=== PATIENT | male | born 1940 | race American Indian/Alaskan Native ===

== ENCOUNTER 2017-08-25 07:54 | Observation (INO) | payer MEDICARE ==
[2017-08-25 08:11] VITALS: BMI 29.7
--- NOTE | 2017-08-25 08:37 | ED PDOC ---
Arrival/HPI - General Chief Complaint: Chest Pain Time Seen by Provider: 08/25/17 08:08 Historian: Patient - History of Present Illness Narrative History of Present Illness (Text): 08/25/17 08:14 77 year old male, with past medical history of [place], diabetes, and GERD, presents to the Emergency department complaining of substernal chest pain since yesterday. Patient states he was cooking last night when the pain began and is currently rated at 9/10 in severity. As per patient, pain worsens with movement and breathing but is unable to describe the pain. Patient denies any history of trauma or radiation of symptoms. Patient denies any fever, chills, nausea, vomiting, diarrhea, abdominal pain, shortness of breath, diaphoresis, or any other complaints. Patient presents to the Emergency department for medical evaluation. PMD: Dr. Jackson ([facility] – [place]) Time/Duration: Other (Last night) Symptom Onset: Gradual Symptom Course: Unchanged Quality: Aching Severity Level: 9 Activities at Onset: Other (Cooking) Context: Home Past Medical History - Provider Review Nursing Documentation Reviewed: Yes - Cardiac Hx Cardiac Disorders: Yes Hx [place]: Yes Hx Pacemaker: No - Pulmonary Hx Respiratory Disorders: No - Neurological Hx Neurological Disorder: No - HEENT Hx HEENT Disorder: No - Renal Hx Renal Disorder: No - Endocrine/Metabolic Hx Endocrine Disorders: Yes Hx Diabetes Mellitus Type 2: Yes - Hematological/Oncological Hx Blood Transfusions: No Hx Blood Transfusion Reaction: No - Integumentary Hx Dermatological Disorder: No - Musculoskeletal/Rheumatological Hx Musculoskeletal Disorders: No - Gastrointestinal Hx Gastrointestinal Disorders: Yes Hx Gastroesophageal Reflux: Yes - Genitourinary/Gynecological Hx Genitourinary Disorders: Yes Hx Prostate Problems: Yes - Psychiatric Hx Emotional Abuse: No Hx Physical Abuse: No Hx Substance Use: No - Anesthesia Hx Anesthesia Reactions: No Hx Malignant Hyperthermia: No - Suicidal Assessment Feels Threatened In Home Enviroment: No Family/Social History - Physician Review Nursing Documentation Reviewed: Yes Family/Social History: No Known Family HX Smoking Status: Never Smoked Hx Alcohol Use: No Hx Substance Use: No Allergies/Home Meds Allergies/Adverse Reactions: Allergies No Known Allergies Allergy (Verified 08/25/17 08:11) Home Medications: Home Meds Medication Instructions Recorded Confirmed Amlodipine Besylate/Benazepril 1 cap PO DAILY 03/24/16 03/24/16 [Amlodipine-Benazepril 5-20 mg] Finasteride [Proscar] 1 tab PO DAILY 03/24/16 03/24/16 Insulin NPH Hum/Reg Insulin Hm 35 units SC BID 03/24/16 03/24/16 [Humulin 70-30 Vial] Losartan Potassium [Cozaar] 1 tab PO DAILY 03/24/16 03/24/16 Omeprazole 40 mg PO DAILY 03/24/16 03/24/16 Propranolol [Inderal] 40 mg PO BID 03/24/16 03/24/16 Simvastatin [Zocor] 1 tab PO DAILY 03/24/16 03/24/16 Review of Systems - Physician Review All systems were reviewed & negative as marked: Yes - Review of Systems Constitutional: Normal. absent: Fevers Eyes: Normal ENT: Normal Respiratory: Normal. absent: SOB Cardiovascular: Chest Pain Gastrointestinal: Normal. absent: Abdominal Pain, Diarrhea, Nausea, Vomiting Genitourinary Male: Normal Musculoskeletal: Normal Skin: Normal Neurological: Normal Endocrine: Normal. absent: Diaphoresis Hemo/Lymphatic: Normal Psychiatric: Normal Physical Exam Vital Signs Reviewed: Yes Vital Signs Temp Pulse Resp BP Pulse Ox 08/25/17 09:38 55 L 16 153/75 H 97 08/25/17 09:34 55 L 153/75 H 08/25/17 08:03 98.8 F 52 L 18 160/73 H 98 Temperature: Afebrile Blood Pressure: Hypertensive Pulse: Bradycardic Respiratory Rate: Normal Appearance: Positive for: Well-Appearing, Non-Toxic, Comfortable Pain Distress: None Mental Status: Positive for: Alert and Oriented X 3 - Systems Exam Head: Present: Atraumatic, Normocephalic Pupils: Present: PERRL Extroacular Muscles: Present: EOMI Conjunctiva: Present: Normal Respiratory/Chest: Present: Clear to Auscultation, Good Air Exchange. No: Respiratory Distress, Accessory Muscle Use Cardiovascular: Present: Regular Rate and Rhythm, Normal S1, S2. No: Murmurs Abdomen: No: Tenderness, Distention, Peritoneal Signs Back: Present: Normal Inspection Upper Extremity: Present: Normal Inspection. No: Cyanosis, Edema Lower Extremity: Present: Normal Inspection. No: Edema Neurological: Present: GCS=15, CN II-XII Intact, Speech Normal Skin: Present: Warm, Dry, Normal Color. No: Rashes Psychiatric: Present: Alert, Oriented x 3, Normal Insight, Normal Concentration Medical Decision Making ED Course and Treatment: 08/25/17 08:14 Impression: 77 year old male presents to the Emergency department for substernal chest pain. Plan: -- Labs -- EKG -- Chest X-ray -- Aspirin -- Lopressor -- Nitroglycerin -- Urinalysis -- Urine culture -- Reassess and disposition Prior Visits: Notes and results from previous visits were reviewed. Progress Notes: 08/25/17 07:56 EKG: Ordered, reviewed, and independently interpreted the EKG. Rate : 54 BPM Rhythm : Sinus bradycardia Interpretation : Premature atrial complexes. Nonspecific T wave abnormality. 08/25/17 08:30 Chest X-ray reviewed by radiologist, shows: FINDINGS: LUNGS: No active pulmonary disease. PLEURA: No significant pleural effusion identified, no pneumothorax apparent. CARDIOVASCULAR: Normal. OSSEOUS STRUCTURES: No significant abnormalities. VISUALIZED UPPER ABDOMEN: Normal. OTHER FINDINGS: None. IMPRESSION: No active disease. - Lab Interpretations Lab Results: 08/25/17 09:15 08/25/17 09:15 Lab Results 08/25/17 09:15: Sodium 141, Potassium 4.4, Chloride 105, Carbon Dioxide 26, Anion Gap 15, BUN 16, Creatinine 0.8, Est GFR ( Amer) > 60, Est GFR (Non- Af Amer) > 60, Random Glucose 117 H, Calcium 9.8, Total Bilirubin 0.4, AST 32, ALT 35, Alkaline Phosphatase 89, Lactate Dehydrogenase 450, Total Creatine Kinase 73, Troponin I < 0.01, NT-Pro-B Natriuret Pep 84.4, Total Protein 7.7, Albumin 4.0, Globulin 3.7, Albumin/Globulin Ratio 1.1, Lipase 65 08/25/17 09:15: PT 12.5, INR 1.09 H 08/25/17 09:15: WBC 9.1, RBC 5.16, Hgb 11.7 L, Hct 35.8 L, MCV 69.4 L, MCH 22.7 L, MCHC 32.7, RDW 14.3, Plt Count 309, MPV 10.2, Gran % 69.1 H, Lymph % (Auto) 24.3, [place] % (Auto) 5.5, Eos % (Auto) 0.9 L, Baso % (Auto) 0.2, Gran # 6.27, Lymph # (Auto) 2.2, [place] # (Auto) 0.5, Eos # (Auto) 0.1, Baso # (Auto) 0.02 - RAD Interpretation Radiology Orders: 08/25/17 08:14 CHEST PORTABLE [RAD] Stat Arts Education Teacher: Radiologist - EKG Interpretation Interpreted by ED Physician: Yes Type: 12 lead EKG - Medication Orders Current Medication Orders: Discontinued Medications Aspirin (Aspirin Chewable) 324 mg PO STAT STA Stop: 08/25/17 08:20 Last Admin: 08/25/17 09:34 Dose: 324 mg Metoprolol Tartrate (Lopressor) 25 mg PO STAT STA Stop: 08/25/17 08:20 Last Admin: 08/25/17 09:34 Dose: 25 mg MAR Pulse and Blood Pressure Document 08/25/17 09:34 [facility] (Rec: 08/25/17 09:34 [facility] [id number]) Pulse Pulse Rate (60-90) 55 Blood Pressure Blood Pressure (100/60-150/90) 153/75 Nitroglycerin (Nitrostat Sl Tab) 0.4 mg SL STAT STA Stop: 08/25/17 08:20 Last Admin: 08/25/17 09:34 Dose: 0.4 mg - Scribe Statement The provider has reviewed the documentation as recorded by the Scribj[employer]. All medical record entries made by the Scribe were at my direction and personally dictated by me. I have reviewed the chart and agree that the record accurately reflects my personal performance of the history, physical exam, medical decision making, and the department course for this patient. I have also personally directed, reviewed, and agree with the discharge instructions and disposition. Disposition/Present on Arrival - Present on Arrival Any Indicators Present on Arrival: No History of DVT/PE: No History of Uncontrolled Diabetes: No Urinary Catheter: No History of Decub. Ulcer: No History Surgical Site Infection Following: None - Disposition Have Diagnosis and Disposition been Completed?: Yes Diagnosis: Chest pain Disposition: HOSPITALIZED Disposition Time: 10:53 Patient Plan: Admission, Telemetry Condition: GOOD Discharge Instructions (ExitCare): Chest Pain (ED) Forms: WhenSoon (Slovak)
[2017-08-25 09:55] LABS: BASO # 0.02 K/mm3 (0.0-2.0); BASO % 0.2 % (0.0-3.0); EOS # 0.1 (0.0-0.7); EOS % 0.9 % (1.5-5.0); GRAN # 6.27 (1.4-6.5); GRAN % 69.1 % (50.0-68.0); HEMOGLOBIN 11.7 g/dL (14.0-18.0); LYMPH # 2.2 (1.2-3.4); LYMPH % 24.3 % (22.0-35.0); MEAN CELL VOLUME 69.4 fl (80.0-105.0); MEAN CORPUSCULAR HEMOGLOBIN 22.7 pg (25.0-35.0); MEAN CORPUSCULAR HGB CONC 32.7 g/dl (31.0-37.0); MEAN PLATELET VOLUME 10.2 fl (7.0-11.0); MONO # 0.5 (0.1-0.6); MONO % 5.5 % (1.0-6.0); RBC 5.16 10^6/uL (3.5-6.1); RED CELL DISTRIBUTION WIDTH 14.3 % (11.5-14.5); WHITE BLOOD COUNT 9.1 10^3/ul (4.5-11.0)
[2017-08-25 10:05] LABS: ALB/GLOB RATIO 1.1 (1.1-1.8); ALT/SGPT 35 U/L (7-56); AST/SGOT 32 U/L (17-59); BLOOD UREA NITROGEN 16 mg/dL (7-21); CALCIUM 9.8 mg/dL (8.4-10.5); GFR AFRICAN-AMERICAN > 60; GFR NON-AFRICAN AMERICAN > 60; LIPASE 65 U/L (23-300)
[2017-08-25 10:08] LABS: INR 1.09 (0.93-1.08); PROTHROMBIN TIME 12.5 SECONDS (9.4-12.5)
[2017-08-25 10:16] LABS: B-TYPE NATRIURETIC PEPTIDE 84.4 pg/mL (0-450); TROPONIN I < 0.01 ng/mL
--- NOTE | 2017-08-25 12:07 | HP ---
HISTORY OF PRESENT ILLNESS: I was called to the ER to see this young man. He is a 77-year-old -[place] man who comes in with a history of having cocaine and then began having 9/10 severity chest pain, worse with motion. Denies trauma and came to the emergency room with left-sided chest pain. PAST MEDICAL HISTORY: He has a past medical history of [place] in the past, diabetes, GERD, he has prostate problems. FAMILY HISTORY: Diabetes in the family. SOCIAL HISTORY: Never smoked. No alcohol. No drugs. ALLERGIES: NO KNOWN DRUG ALLERGIES. MEDICATIONS: He is on amlodipine, benazepril, Proscar, insulin, Cozaar, omeprazole, Inderal and Zocor. REVIEW OF SYSTEMS: No acute vision changes or hearing changes. No sore throat. No shortness of breath or cough. He is just having chest pain, it is sharp, it is pressure. No palpitations. No abdominal pain, nausea, vomiting, constipation, diarrhea. No problems urinating. No leg pains. He is not anxious. Not sweaty. No numbness or tingling. No expression of any skin issues. PHYSICAL EXAMINATION: VITAL SIGNS: He has a 98.8 temp, 52 pulse, 18 respiratory rate, 160/73 blood pressure, 98% O2 sat on room air. GENERAL: He is well appearing, comfortable at this time, resting on the gurney in the emergency room. He is alert and oriented x3. HEENT: Head is atraumatic, normocephalic. Extraocular muscles are intact. Pupils equal, reactive to light and accommodation. Throat is moist. NECK: Supple. HEART: Regular rate. Normal S1 and S2. LUNGS: Decreased breath sounds bilaterally. Fair inspiration, but no wheezes, rhonchi or rales. ABDOMEN: Soft, nontender. Positive bowel sounds. No guarding, no rebound, no CVA tenderness. EXTREMITIES: Have no edema. He moves all 4 extremities. NEUROLOGIC: GCS is 15. Cranial nerves II through XII grossly intact. Normal speech. SKIN: Warm and dry. No apparent rashes or ulcers that I could tell. LYMPHATICS: Thyroid midline. No palpable appreciable lymphadenopathy. PSYCHIATRIC: Alert and oriented x3. LABORATORY DATA: He had multiple tests. He has a 9.1 white count, 11.7 hemoglobin, 35.8 hematocrit with 309 platelets. He has an INR of 1.09. 141 sodium, potassium 4.4, BUN 16, creatinine 0.8, GFR is greater than 60, sugar is 117, calcium is 9.8, total bili is 0.4, AST is 32, ALT is 35, alk phos 89, lactate dehydrogenase is 450. Troponin I first one is less than 0.01. BNP is 84.4, total protein 7.7, albumin is 4, lipase is 65. Chest x-ray is no acute distress. IMPRESSION: He is here for chest pain. He will be on observation status. Two more troponins every 8 hours. I will put him back on his regular medications. He will have a consult with Cardiology. He will go to telemetry floor on observation. He is here for chest pain. Delfino Andrade DO
[2017-08-25] MEDS ORDERED: PROPRANOLOL 40 MG PO SCH (18:00)
[2017-08-25] MEDS: Insulin Human NPH/Reg 70/30 Vial(3 ml) SC SCH (19:15)
--- NOTE | 2017-08-25 23:42 | CARD ---
APPROVED REPORT EKG Measurement Heart [id number] <Conclusion> Sinus bradycardia with premature atrial complexes in a pattern of bigeminy Minimal voltage criteria for LVH, may be normal variant Nonspecific T wave abnormality Abnormal ECG
[2017-08-26 06:28] LABS: HEMOGLOBIN 10.5 g/dL (14.0-18.0); MEAN CELL VOLUME 69.2 fl (80.0-105.0); MEAN CORPUSCULAR HEMOGLOBIN 22.3 pg (25.0-35.0); MEAN CORPUSCULAR HGB CONC 32.2 g/dl (31.0-37.0); MEAN PLATELET VOLUME 10.2 fl (7.0-11.0); RBC 4.71 10^6/uL (3.5-6.1); RED CELL DISTRIBUTION WIDTH 14.4 % (11.5-14.5); WHITE BLOOD COUNT 7.3 10^3/ul (4.5-11.0)
[2017-08-26 06:40] LABS: ALBUMIN 3.3 g/dL (3.0-4.8); ALT/SGPT 33 U/L (7-56); AST/SGOT 30 U/L (17-59); BLOOD UREA NITROGEN 19 mg/dL (7-21); CALCIUM 8.7 mg/dL (8.4-10.5); GFR AFRICAN-AMERICAN > 60; GFR NON-AFRICAN AMERICAN > 60
[2017-08-26 06:53] VITALS: O2SAT 99
[2017-08-26] MEDS ORDERED: Pantoprazole 40 mg EC Tab PO SCH (07:30)
[2017-08-26] MEDS: Insulin Human NPH/Reg 70/30 Vial(3 ml) SC SCH (09:43)
[2017-08-26] MEDS ORDERED: BENAZEPRIL PO SCH ×2 (10:00)
[2017-08-26] MEDS ORDERED: Non Formulary Medication (Omeprazole [Omeprazole] 40 MG) PO SCH (10:00)
[2017-08-26] MEDS ORDERED: [UNRECOGNIZED DRUG - OTHER] PO SCH ×2 (10:00)
[2017-08-26] MEDS ORDERED: AMLODIPINE BESYLATE PO SCH ×2 (10:00)
[2017-08-26] MEDS ORDERED: Non Formulary Medication (Simvastatin [Zocor] 1 TAB) PO SCH (10:00)
--- NOTE | 2017-08-26 11:14 | CON ---
DATE: 08/26/2017 CARDIOLOGY CONSULTATION HISTORY: The patient is a 77-year-old male who presents with chest pain which is atypical in nature. PAST MEDICAL HISTORY: Includes a remote myocardial infarction in the past according to the patient. He suffers from hypertension, hypercholesterolemia as well as diabetes mellitus. SOCIAL HISTORY He denies smoking. REVIEW OF SYSTEMS: The patient is currently chest pain free. He is ambulating without symptoms. The 14 point review of systems is reviewed in detail. No additional symptoms are noted from above. PHYSICAL EXAMINATION: VITAL SIGNS: Blood pressure 139/75, heart rate in the 50s. Normal sinus rhythm. NECK: Negative JVD. LUNGS: Without rales. HEART: Reveal S1, S2. EXTREMITIES: Without edema. DATA: EKG shows sinus bradycardia with no acute changes. Troponins are negative x2. Glucose is 171, hemoglobin is 10.5. IMPRESSION: 1. Atypical chest pain. 2. No evidence for acute coronary syndrome. 3. History of myocardial infarction, nonspecific. 4. Diabetes mellitus. 5. Hypertension. 6. Hypercholesterolemia. 7. Anemia. Given these findings, there is no evidence for acute coronary syndrome. We will need to decrease his beta-blockers given his resting bradycardia. From a cardiac perspective, the patient can be discharged. We will arrange for an outpatient stress test next week. Danial Melo MD
[2017-08-26 11:26] VITALS: BP 133/82; PULSE 61; RESP 18; TEMP 98
--- NOTE | 2017-08-27 06:35 | DS ---
HISTORY OF PRESENT ILLNESS: I saw him resting comfortably in bed this morning. He slept well. He is in good spirits. He is on his amlodipine, benazepril, Cozaar, Inderal, Lipitor, Proscar and Protonix. He slept well. He is eating well. PHYSICAL EXAMINATION: VITAL SIGNS: He has 98.1 temperature, 53 pulse, 152/68 blood pressure, 19 respiratory rate, 99% O2 sat on room air. CHEST: He is having no chest pain or shortness of breath. HEENT: Head is atraumatic, normocephalic. HEART: Regular rate. LUNGS: Clear to auscultation. ABDOMEN: Soft. EXTREMITIES: No edema. LABORATORY DATA: He has a 139 sodium, potassium 3.9, BUN is 19, creatinine is 0.9, GFR is greater than 60, sugar is 171, calcium is 8.7, total bili is 0.2, AST is 30, ALT is 32, alk phos is 87. All 3 troponins are less than 0.01. He has a 6.8 albumin. His INR is 1.09. He has a 7.3 white count, 10.5 hemoglobin, 32.6 hematocrit with 318 platelets. ASSESSMENT AND PLAN: I am waiting for Dr. 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 I am hoping to discharge him later this afternoon. He will follow up with his primary care doctor in the next week. He will continue with his medications and right now, it looks like chest pain - atypical. Delfino Andrade DO
== END 2017-08-26 13:56 | disposition home or self-care (01) ==
LOC: ED 07:54 → ERH 10:42 → 2RNO 12:52
PROVIDERS: ADMIT Family Medicine; ATTEND Family Medicine
DX: R07.89 Other chest pain (principal); I10 Essential (primary) hypertension; E11.9 Type 2 diabetes mellitus without complications; K21.9 Gastro-esophageal reflux disease without esophagitis; D64.9 Anemia, unspecified; E78.00 Pure hypercholesterolemia, unspecified; I25.2 Old myocardial infarction; Z79.4 Long term (current) use of insulin; Z83.3 Family history of diabetes mellitus
CPT/HCPCS: 36415; 71045; 80053; 82550; 82948; 83615; 83690; 83880; 84484; 85025; 85027; 85610; 93005; 99283; G0378

== ENCOUNTER 2017-10-31 11:20 | Inpatient (IN) | payer MEDICARE, OTHER ==
--- NOTE | 2017-10-31 12:18 | ED PDOC ---
Arrival/HPI - General Chief Complaint: Male Genitourinary Time Seen by Provider: 10/31/17 11:26 Historian: Patient - History of Present Illness Narrative History of Present Illness (Text): 10/31/17 11:51 A 77 year old male, whose past medical history includes benign prostatic hyperplasia, DM, and Hypertension, presents to the emergency department complaining of suprapubic abdominal pain since last . Patient reports last Tuesday his urine started to smell to which he visited his PMD, Dr. Jackson. Dr. Jackson prescribed ciprofloxacin and patient reports he has taken one pill everyday to no relief and pain has increased. Patient notes he has not had a bowel movement in the past 6 days. Patient denies any fever, chills, chest pain , shortness of breath, nausea, vomiting, diarrhea, hematuria, back pain, neck pain, headache, dizziness, or any other complaints. PMD: Dr. Jackson Time/Duration: > week (last week) Symptom Onset: Gradual Symptom Course: Unchanged Activities at Onset: Light Context: Home Past Medical History - Provider Review Nursing Documentation Reviewed: Yes - Cardiac Hx Cardiac Disorders: Yes - Pulmonary Hx Respiratory Disorders: No - Neurological Hx Neurological Disorder: No - HEENT Hx HEENT Disorder: No - Renal Hx Renal Disorder: No - Endocrine/Metabolic Hx Endocrine Disorders: Yes Hx Diabetes Mellitus Type 2: Yes - Hematological/Oncological Hx Blood Disorders: No - Integumentary Hx Dermatological Disorder: No - Musculoskeletal/Rheumatological Hx Musculoskeletal Disorders: No - Gastrointestinal Hx Gastrointestinal Disorders: Yes Hx Gastroesophageal Reflux: Yes - Genitourinary/Gynecological Hx Genitourinary Disorders: Yes Hx Prostate Problems: Yes - Psychiatric Hx Psychophysiologic Disorder: No Hx Substance Use: No - Anesthesia Hx Anesthesia Reactions: No Hx Malignant Hyperthermia: No - Suicidal Assessment Feels Threatened In Home Enviroment: No Family/Social History - Physician Review Nursing Documentation Reviewed: Yes Family/Social History: Unknown Family HX Smoking Status: Never Smoked Hx Alcohol Use: No Hx Substance Use: No Allergies/Home Meds Allergies/Adverse Reactions: Allergies No Known Allergies Allergy (Verified 10/31/17 15:42) Home Medications: Home Meds Medication Instructions Recorded Confirmed Amlodipine Besylate/Benazepril 1 cap PO DAILY 03/24/16 10/31/17 [Amlodipine-Benazepril 5-20 mg] Finasteride [Proscar] 1 tab PO DAILY 03/24/16 10/31/17 Insulin NPH Hum/Reg Insulin Hm 35 units SC BID 03/24/16 10/31/17 [Humulin 70-30 Vial] Losartan Potassium [Cozaar] 1 tab PO DAILY 03/24/16 10/31/17 Propranolol [Inderal] 20 mg PO BID 03/24/16 10/31/17 Simvastatin [Zocor] 1 tab PO DAILY 03/24/16 10/31/17 Ciprofloxacin [Cipro] 500 mg PO BID 10/31/17 10/31/17 Olmesartan Medoxomil [Benicar] 40 mg PO DAILY 10/31/17 10/31/17 Ranitidine HCl [Zantac] 150 mg PO DAILY 10/31/17 10/31/17 Rosuvastatin Calcium [Crestor] 10 mg PO DAILY 10/31/17 10/31/17 Review of Systems - Physician Review All systems were reviewed & negative as marked: Yes - Review of Systems Constitutional: absent: Fevers, Night Sweats Respiratory: absent: SOB Cardiovascular: absent: Chest Pain Gastrointestinal: Abdominal Pain. absent: Stool Changes, Constipation, Diarrhea , Nausea, Vomiting, Appetite Changes, Hematemesis, Anorexia, Food Intolerance, Other (hematuria) Musculoskeletal: absent: Back Pain, Neck Pain Neurological: absent: Headache, Dizziness Physical Exam Vital Signs Reviewed: Yes Vital Signs Temp Pulse Resp BP Pulse Ox 10/31/17 11:53 97.9 F 63 18 161/88 H 100 Temperature: Afebrile Blood Pressure: Hypertensive Pulse: Regular Respiratory Rate: Normal Appearance: Positive for: Well-Appearing, Non-Toxic, Comfortable Pain Distress: None Mental Status: Positive for: Alert and Oriented X 3 - Systems Exam Head: Present: Atraumatic, Normocephalic Pupils: Present: PERRL Extroacular Muscles: Present: EOMI Conjunctiva: Present: Normal Mouth: Present: Moist Mucous Membranes Neck: Present: Normal Range of Motion Respiratory/Chest: Present: Clear to Auscultation, Good Air Exchange. No: Respiratory Distress, Accessory Muscle Use Cardiovascular: Present: Regular Rate and Rhythm, Normal S1, S2. No: Murmurs Abdomen: Present: Tenderness (suprapubic tenderness to palpation). No: Distention, Normal Bowel Sounds, Peritoneal Signs, Rebound, Guarding, McBurney' s Point Tender, Rovsing's Sign Present, Hernias, Feeding Tubes, Ostomy Tubes, Mass/Organomegaly, Scars Back: Present: Normal Inspection Upper Extremity: Present: Normal Inspection. No: Cyanosis, Edema Lower Extremity: Present: Normal Inspection. No: Edema Neurological: Present: GCS=15, CN II-XII Intact, Speech Normal Skin: Present: Warm, Dry, Normal Color. No: Rashes Psychiatric: Present: Alert, Oriented x 3, Normal Insight, Normal Concentration Medical Decision Making ED Course and Treatment: 10/31/17 12:00 Impression: A 77 year old male presents to the emergency department complaining of suprapubic abdominal pain. Plan: -- CT of Abdomen & Pelvis with contrast -- Labs -- CBC -- Pepcid -- IV Fluids -- Urine culture -- Urinalysis -- Reassess and disposition Prior Visits: Notes and results from previous visits were reviewed. Progress Notes: 10/31/17 12:00 In initial assessment, patient reported he has been taken prescribed medicine from PMD every day but upon observation all 14 pills are present and untouched. 10/31/17 14:29 Dictator: Dylan Branch MD Procedure: CT Abdomen and Pelvis with contrast Impression: There is severe mural thickening and irregularity of the bladder wall. Several diverticula are seen arising from the anterior superior surface of the bladder. Findings are suspicious for cystitis. The prostate is severely enlarged measuring 81 mm in height by 68 mm wide by 53 mm AP. 10/31/17 14:[address] Rg, who is aware the patient is in the emergency room to admit patient to med-surg for further observation. - Lab Interpretations Lab Results: 10/31/17 12:10 10/31/17 12:10 Lab Results 10/31/17 12:30: Urine Opiates Screen Negative, Urine Methadone Screen Negative, Ur Barbiturates Screen Negative, Ur Phencyclidine Scrn Negative, Ur Amphetamines Screen Negative, U Benzodiazepines Scrn Negative, U Oth Cocaine Metabols Negative, U Cannabinoids Screen Negative 10/31/17 12:10: Urine Color Light yellow, Urine Appearance Cloudy, Urine pH 5.5 , Ur Specific [place] >= 1.030, Urine Protein >=300 H, Urine Glucose (UA) Negative, Urine Ketones Negative, Urine Blood Large H, Urine Nitrate Negative, Urine Bilirubin Negative, Urine Urobilinogen 0.2, Ur Leukocyte Esterase Large H , Urine RBC Tntc, Urine WBC Tntc, Ur Epithelial Cells 0 - 2, Amorphous Sediment Small, Urine Bacteria Many, Urine Other Uyeast 10/31/17 12:10: Sodium 140, Potassium 4.7, Chloride 103, Carbon Dioxide 27, Anion Gap 15, BUN 18, Creatinine 1.0, Est GFR ( Amer) > 60, Est GFR (Non- Af Amer) > 60, Random Glucose 302 H* D, Calcium 9.9, Magnesium 1.9, Total Bilirubin 0.4, AST 23, ALT 22, Alkaline Phosphatase 120, Total Protein 7.5, Albumin 3.9, Globulin 3.6, Albumin/Globulin Ratio 1.1, Lipase 85 10/31/17 12:10: WBC 7.4, RBC 4.80, Hgb 11.0 L, Hct 33.1 L, MCV 69.0 L, MCH 22.9 L, MCHC 33.2, RDW 14.6 H, Plt Count 350, MPV 9.5, Gran % 55.9, Lymph % (Auto) 31.4, Wayne % (Auto) 10.0 H, Eos % (Auto) 2.4, Baso % (Auto) 0.3, Gran # 4.14, Lymph # (Auto) 2.3, Wayne # (Auto) 0.7 H, Eos # (Auto) 0.2, Baso # (Auto) 0.02 - RAD Interpretation Radiology Orders: 10/31/17 12:05 ABD & PELVIS IV CONTRAST ONLY [CT] Stat - Medication Orders Current Medication Orders: Acetaminophen (Tylenol 325mg Tab) 650 mg PO Q6 PRN PRN Reason: TEMP>=99.5F Acetaminophen (Tylenol 650 Mg Supp) 650 mg RC Q6H PRN PRN Reason: TEMP>=99.5F Aspirin (Ecotrin) 81 mg PO DAILY [facility] Last Admin: 10/31/17 16:22 Dose: 81 mg Atorvastatin Calcium (Lipitor) 40 mg PO DIN [facility] Last Admin: 10/31/17 18:18 Dose: 40 mg Dextrose (Dextrose 50% Inj) 0 ml IV STAT PRN; Protocol PRN Reason: Hypoglycemia Protocol Docusate Sodium (Colace) 100 mg PO TID [facility] Last Admin: 10/31/17 18:18 Dose: 100 mg Famotidine (Pepcid) 20 mg PO HS DAISY Last Admin: 10/31/17 22:37 Dose: 20 mg Finasteride (Proscar) 5 mg PO DAILY DAISY Heparin Sodium (Porcine) (Heparin) 5,000 units SC Q8 DAISY PRN Reason: Protocol Last Admin: 10/31/17 22:17 Dose: 5,000 units Subcutaneous Administrations Document 10/31/17 22:17 MJ (Rec: 10/31/17 22:17 [place] [id number]) Injection Site MAR Injection Site Left Abdomen Charges for Administration # of Subcutaneous Administrations 1 Sodium Chloride (Sodium Chloride 0.9%) 1,000 mls @ 100 mls/hr IV .Q10H DAISY Last Admin: 10/31/17 22:32 Dose: 100 mls/hr eMAR Start Stop Document 10/31/17 22:32 MJ (Rec: 10/31/17 22:32 [place] [id number]) Intravenous Solution Start Date 10/31/17 Start Time 22:32 Sodium Chloride (Sodium Chloride 0.9%) 1,000 mls @ 100 mls/hr IV .Q10H DAISY Cefepime HCl (Maxipime 1gm) 1 gm in 100 mls @ 100 mls/hr IVPB Q12 DAISY PRN Reason: Protocol Last Admin: 10/31/17 22:17 Dose: 100 mls/hr eMAR Start Stop Document 10/31/17 22:17 MJ (Rec: 10/31/17 22:18 [id number] Intravenous Solution Start Date 10/31/17 Start Time 22:18 End Date 10/31/17 End time 23:18 Total Infusion Time 60 Dextrose (Dextrose 5% In Water 1000 Ml) 1,000 mls @ 0 mls/hr IV .Q0M PRN; Protocol; Per Protocol PRN Reason: Hypoglycemia Protocol Insulin Human Lispro (Humalog High) 0 units SC AC [facility] PRN Reason: Protocol Last Admin: 10/31/17 16:44 Dose: 7 units MAR Blood Glucose Document 10/31/17 16:44 CV (Rec: 10/31/17 16:45 CV [place] [id number]) Blood Glucose Finger Stick Blood Glucose (70-120) 268 Subcutaneous Administrations Document 10/31/17 16:44 CV (Rec: 10/31/17 16:45 CV [id number]) Injection Site MAR Injection Site Left Abdomen Charges for Administration # of Subcutaneous Administrations 1 Losartan Potassium (Cozaar) 50 mg PO DAILY [facility] Last Admin: 10/31/17 16:22 Dose: 50 mg Ondansetron HCl (Zofran Inj) 4 mg IVP Q4H PRN PRN Reason: Nausea/Vomiting Pantoprazole Sodium (Protonix Ec Tab) 40 mg PO 0600 [facility] Polyethylene Glycol (Miralax) 17 gm PO BID [facility] Last Admin: 10/31/17 18:18 Dose: 17 gm Propranolol HCl (Inderal) 20 mg PO BID [facility] Last Admin: 10/31/17 18:18 Dose: 20 mg Discontinued Medications Famotidine (Pepcid) 20 mg IVP STAT STA Stop: 10/31/17 12:14 Last Admin: 10/31/17 12:49 Dose: 20 mg IVP Administration Document 10/31/17 12:49 HI (Rec: 10/31/17 12:49 [id number] Charges for Administration # of IVP Administrations 1 Famotidine (Pepcid) 20 mg PO .EXTRA DOSE ONE Stop: 10/31/17 15:16 Last Admin: 10/31/17 16:22 Dose: 20 mg Finasteride (Proscar) 1 mg PO DAILY [facility] Ceftriaxone Sodium (Rocephin 2 Gm Ivpb) 2 gm in 100 mls @ 100 mls/hr IVPB STAT STA PRN Reason: Protocol Stop: 10/31/17 15:34 Last Admin: 10/31/17 15:12 Dose: 100 mls/hr eMAR Start Stop Document 10/31/17 15:12 HI (Rec: 10/31/17 15:13 HI [id number] Intravenous Solution Start Date 10/31/17 Start Time 14:15 Non-Formulary Medication (Ranitidine Hcl [Zantac]) 150 mg PO DAILY [facility] Pneumococcal Polyvalent Vaccine (Pneumovax 23 Vaccine) 0.5 ml IM .ONCE ONE Stop: 10/31/17 20:25 - Scribe Statement The provider has reviewed the documentation as recorded by the Juvenal Spears All medical record entries made by the Scribe were at my direction and personally dictated by me. I have reviewed the chart and agree that the record accurately reflects my personal performance of the history, physical exam, medical decision making, and the department course for this patient. I have also personally directed, reviewed, and agree with the discharge instructions and disposition. Disposition/Present on Arrival - Present on Arrival Any Indicators Present on Arrival: No History of DVT/PE: No History of Uncontrolled Diabetes: Yes Urinary Catheter: No History of Decub. Ulcer: No History Surgical Site Infection Following: None - Disposition Have Diagnosis and Disposition been Completed?: Yes Diagnosis: UTI (urinary tract infection), Cystitis Disposition: HOSPITALIZED Disposition Time: 13:00 Condition: STABLE
[2017-10-31 12:25] LABS: BASO # 0.02 K/mm3 (0.0-2.0); BASO % 0.3 % (0.0-3.0); EOS # 0.2 (0.0-0.7); EOS % 2.4 % (1.5-5.0); GRAN # 4.14 (1.4-6.5); GRAN % 55.9 % (50.0-68.0); LYMPH # 2.3 (1.2-3.4); LYMPH % 31.4 % (22.0-35.0); MEAN CORPUSCULAR HEMOGLOBIN 22.9 pg (25.0-35.0); MEAN CORPUSCULAR HGB CONC 33.2 g/dl (31.0-37.0); MEAN PLATELET VOLUME 9.5 fl (7.0-11.0); MONO # 0.7 (0.1-0.6); PH,URINE 5.5 (4.7-8.0); RBC 4.8 10^6/uL (3.5-6.1); RED CELL DISTRIBUTION WIDTH 14.6 % (11.5-14.5); URINE BILIRUBIN NEGATIVE (NEGATIVE); URINE BLOOD LARGE (NEGATIVE); URINE GLUCOSE (UA) NEGATIVE (NEGATIVE); URINE LEUKOCYTE ESTERASE LARGE Leu/uL (NEGATIVE); URINE PROTEIN >=300 mg/dL (<30 mg/dL); URINE UROBILINOGEN 0.2 E.U./dL (<1 E.U./dL); WHITE BLOOD COUNT 7.4 10^3/ul (4.5-11.0)
[2017-10-31 12:28] LABS: URINE APPEARANCE CLOUDY (CLEAR); URINE COLOR LIGHT YELLOW (YELLOW)
[2017-10-31 12:41] LABS: URINE BACTERIA MANY (NEG); URINE EPITHELIAL CELLS 0 - 2 /hpf (0-5); URINE RBC TNTC /hpf (0-2); URINE WBC TNTC /hpf (0-6)
[2017-10-31 12:42] LABS: URINE AMORPHOUS SEDIMENT SMALL
[2017-10-31 12:46] LABS: ALB/GLOB RATIO 1.1 (1.1-1.8); ALBUMIN 3.9 g/dL (3.0-4.8); ALT/SGPT 22 U/L (7-56); AST/SGOT 23 U/L (17-59); BLOOD UREA NITROGEN 18 mg/dL (7-21); CALCIUM 9.9 mg/dL (8.4-10.5); GFR NON-AFRICAN AMERICAN > 60; LIPASE 85 U/L (23-300)
[2017-10-31] MEDS: Sodium Chloride 0.9% 1,000 ML IV SCH ×2 (12:49→22:32)
[2017-10-31] MEDS ORDERED: Iohexol 350 MG/100 ML VIAL ONE (12:56)
[2017-10-31 13:22] LABS: BARBITURATES, UR NEGATIVE (NEGATIVE); BENZODIAZEPINES, UR NEGATIVE (NEGATIVE); OPIATES, UR NEGATIVE (NEGATIVE); PHENCYCLIDINE, UR NEGATIVE (NEGATIVE)
--- NOTE | 2017-10-31 14:23 | CT ---
Date of service: 10/31/2017 PROCEDURE: CT Abdomen and Pelvis with contrast HISTORY: lower abd pain with dysuria COMPARISON: None. TECHNIQUE: Contrast dose: 100 cc of Omni 350 Radiation dose: Total exam DLP = 745 mGy-cm. This CT exam was performed using one or more of the following dose reduction techniques: Automated exposure control, adjustment of the mA and/or kV according to patient size, and/or use of iterative reconstruction technique. FINDINGS: LOWER THORAX: Unremarkable. LIVER: Unremarkable. No gross lesion or ductal dilatation. GALLBLADDER AND BILE DUCTS: Unremarkable. PANCREAS: Unremarkable. No gross lesion or ductal dilatation. SPLEEN: Unremarkable. ADRENALS: Unremarkable. No mass. KIDNEYS AND URETERS: Unremarkable. No hydronephrosis. No solid mass. VASCULATURE: Unremarkable. No aortic aneurysm. BOWEL: Unremarkable. No obstruction. No gross mural thickening. APPENDIX: Normal appendix. PERITONEUM: Unremarkable. No free fluid. No free air. LYMPH NODES: Unremarkable. No enlarged lymph nodes. BLADDER: There is severe mural thickening and irregularity of the bladder wall. Several diverticula are seen arising from the anterior superior surface of the bladder. Findings are suspicious for cystitis. REPRODUCTIVE: The prostate is severely enlarged measuring 81 mm in height by 68 mm wide by 53 mm AP. . BONES: No acute fracture. OTHER FINDINGS: None. IMPRESSION: There is severe mural thickening and irregularity of the bladder wall. Several diverticula are seen arising from the anterior superior surface of the bladder. Findings are suspicious for cystitis. The prostate is severely enlarged measuring 81 mm in height by 68 mm wide by 53 mm AP. .
[2017-10-31] MEDS ORDERED: cefTRIAXone 2 GM IN NS 2 GM/100 ML BAG IVPB STA (14:35)
[2017-10-31] MEDS ORDERED: Dextrose 50% SYRINGE Inj (50 ml) IV PRN (15:06)
[2017-10-31] MEDS ORDERED: Lactated Ringer's 1,000 ML IV SCH (15:15)
[2017-10-31] MEDS: Insulin Lispro (HUMAlog) HIGH Coverage SC SCH (16:44)
[2017-10-31] MEDS ORDERED: PROPRANOLOL 20 MG PO SCH (18:00)
[2017-10-31] MEDS ORDERED: Insulin Human NPH/Reg 70/30 Vial(3 ml) SC SCH (18:00)
[2017-10-31] MEDS: POLYETHYLENE GLYCOL 3350 17 GM/Dose PACKET PO SCH (18:18)
[2017-10-31] MEDS: Insulin Human NPH/Reg 70/30 Vial(3 ml) SC SCH (18:19)
[2017-10-31 20:24] VITALS: BMI 28.8
[2017-10-31] MEDS ORDERED: Pneumococcal 23-Valent Vaccine IM ONE (20:24)
[2017-10-31] MEDS: Cefepime 1gm in NS 100ml 1 GM/100 ML BAG IVPB SCH (22:17)
[2017-10-31] MEDS ORDERED: Magnesium Hydroxide Susp 30 ml UD PO ONE (22:52)
--- NOTE | 2017-11-01 04:18 | HP ---
Copied To: Claude Rg MD Attending MD: Claude Rg MD HISTORY OF PRESENT ILLNESS: The patient is a 77-year-old male presented to the emergency room complaining of suprapubic and bladder pain and difficulty urinating. The patient also reports that according to the ER physician, the patient also reports that the patient started having suprapubic abdominal pain and the urine appeared to be dark and smelly. The patient was seen by the PMD about 4 days ago. The patient was prescribed p.o. ciprofloxacin, which the patient states that he has been taking a tablet daily, but the patient's dysuria has increased, suprapubic pain and bladder pain have improved and the patient also complained of constipation. REVIEW OF SYSTEMS: Thirteen-system review was done, pertinent positive and negative dictated above. CODE STATUS: Full code. LIVING WILL AND ADVANCE DIRECTIVE: None. ALLERGIES: NONE. HEIGHT: 5 feet 9 inches. WEIGHT: 195. HOME MEDICATIONS: Cipro 500 b.i.d., Zantac 150 daily, Inderal 20 mg twice a day, insulin 70/30 35 units twice a day, amlodipine/benazepril 5/20 daily. The patient is also on Cozaar 100 mg daily. The patient is on Proscar 5 mg daily. The patient is on Zocor 20 mg daily, Crestor 10 mg daily and Benicar 40 mg daily. All these medications appeared to be very confusing because the patient is on duplicate medications. SOCIAL HISTORY: Negative for smoking. Negative for alcohol. Negative for substance abuse. OCCUPATIONAL HISTORY: Elderly disabled male. FAMILY HISTORY: Not available. PAST MEDICAL HISTORY: History of hypertension, history of insulin-requiring diabetes mellitus, history of hyperlipidemia, history of prostate problem, history of circumcision. The patient's past medical history is significant for anemia, history of uncontrolled diabetes mellitus, history of hyperglycemia, history of endoscopy and colonoscopy done in 2017, history of Helicobacter pylori gastritis, history of colonic polyp and tubular adenoma of the descending and transverse colon, history of polypectomy, history of prostatic hypertrophy, history of atypical chest pain, history of transverse colon polyp polypectomy, history of descending colon polyp polypectomy, history of internal hemorrhoids, history of moderate size hiatal hernia, and history of multiple superficial duodenal ulcer. PHYSICAL EXAMINATION: GENERAL: The patient is seen in room 577. The patient is seen lying in the bed. VITAL SIGNS: T-max 98. Heart rate 63, 77; blood pressure is 161/88, 142/67, 118/86, 168/93; respiration 18-20; O2 sat 100%. HEENT: Head, normocephalic, atraumatic. Pinkish pale conjunctivae. Dry oral mucosa. No neck rigidity. CHEST: Kyphosis. LUNGS: Shows no rales, crackles or wheezing. CARDIOVASCULAR: S1, S2, regular rhythm. ABDOMEN: Soft. Positive bowel sound, positive suprapubic tenderness and dullness noted. No hepatosplenomegaly appreciated. GENITALIA: Male. RECTAL: Examination deferred. EXTREMITIES: No pitting edema, no calf tenderness, no Homans' sign. NEUROLOGIC: The patient is alert, awake, responsive, is able to move upper and lower extremities without assistance. Gait examination is not tested. VASCULAR: Palpable pulses. DIAGNOSTICS: CBC shows a hemoglobin and hematocrit of 11 and 33, MCV 69, platelets 340. Differential are normal. Chemistry shows significant for glucose of 302. Rest of the chemistry, LFTs and lipase normal. Urinalysis, 300 protein, large blood, large leukocyte esterase, many bacteria and yeast. The patient's CAT scan of the abdomen and pelvis was done, the results were reviewed. The patient's EKG from 08/2017 was reviewed which shows sinus bradycardia, left axis deviation. The patient was seen in the emergency room by Dr. Glez. The patient was started on IV fluid. The patient was given IV fluid. The patient was given Rocephin 2 g IV. The patient was advised to be admitted. IMPRESSION: 1. Urinary tract infection, failed outpatient oral antibiotic therapy. 2. History of hypertension. 3. History of insulin-requiring diabetes mellitus. 4. Microcytic anemia. 5. Uncontrolled diabetes with hyperglycemia. 6. Urinary tract infection with cystitis versus possible prostatitis. 7. Proteinuria, microhematuria, pyuria, bacteriuria, funguria. 8. Severe cystitis with severe mural thickening and irregularity of the urinary bladder. 9. Multiple bladder diverticulum and severe cystitis. 10. Severe prostatomegaly. 11. History of sinus bradycardia and hypertensive cardiovascular disease and left axis deviation. PLAN: At this time, the patient will be admitted to [facility] The patient has been ordered repeat labs, hemoglobin A1c, lipid panel. The patient will be ordered blood and urine cultures. Infectious Disease evaluation. Social Service evaluation. Diabetic education referral. TCU evaluation ordered. The patient is started on Colace 100 three times a day for constipation, Cozaar 50 mg daily. Hypoglycemia protocol ordered. Diflucan 200 mg IV daily. Ecotrin 81 daily. Heparin 5000 subcu every 8. Humalog high-dose sliding scale coverage. The patient is started on Humulin 70/30 35 units with breakfast and dinner, Inderal 20 mg twice a day, Lipitor 40 mg daily. The patient is started on cefepime 1 g IV every 12. The patient is given milk of magnesia, MiraLax and Colace for constipation. The patient is on Pepcid 20 mg at bedtime, Proscar 5 mg daily, Protonix 40 mg daily, IV fluid 0.9 normal saline at 100 mL an hour, Tylenol 650 mg p.o. suppository every 6 p.r.n., Zofran 4 mg IV every 4. The patient has been ordered out of bed, PAULA stockings, SCDs. Physical therapy, occupational therapy ordered. The patient will also be ordered Flomax. We will await further diagnostic therapeutic intervention. The patient's further management will be dependent upon the patient's clinical condition, hemodynamic status and as per the patient's response to therapeutic intervention as per the patient's diagnostic test results and as per recommendation by all the physicians involved in the care of the patient. Dictated and electronically signed, not read. Claude Rg MD
[2017-11-01] MEDS ORDERED: Fluconazole IV 200mg/100 ml NS 100 ML IVPB ONE (04:57)
[2017-11-01] MEDS: Fluconazole IV 200mg/100 ml NS 100 MG in Premixed IV 1 EA IVPB SCH ×2 (05:04→12:56)
[2017-11-01] MEDS: Pantoprazole 40 mg EC Tab PO SCH (05:05)
[2017-11-01 07:25] LABS: BASO # 0.03 K/mm3 (0.0-2.0); BASO % 0.4 % (0.0-3.0); EOS # 0.2 (0.0-0.7); EOS % 3.2 % (1.5-5.0); GRAN # 4.4 (1.4-6.5); GRAN % 58.7 % (50.0-68.0); HEMOGLOBIN 10.7 g/dL (14.0-18.0); LYMPH # 2.2 (1.2-3.4); LYMPH % 28.9 % (22.0-35.0); MEAN CELL VOLUME 68.9 fl (80.0-105.0); MEAN CORPUSCULAR HEMOGLOBIN 22.6 pg (25.0-35.0); MEAN CORPUSCULAR HGB CONC 32.8 g/dl (31.0-37.0); MEAN PLATELET VOLUME 9.6 fl (7.0-11.0); MONO # 0.7 (0.1-0.6); MONO % 8.8 % (1.0-6.0); RBC 4.73 10^6/uL (3.5-6.1); RED CELL DISTRIBUTION WIDTH 14.5 % (11.5-14.5); WHITE BLOOD COUNT 7.5 10^3/ul (4.5-11.0)
[2017-11-01 07:43] LABS: ALBUMIN 3.5 g/dL (3.0-4.8); ALT/SGPT 29 U/L (7-56); AST/SGOT 37 U/L (17-59); BILIRUBIN,DIRECT 0.2 mg/dL (0.0-0.4); BLOOD UREA NITROGEN 14 mg/dL (7-21); CALCIUM 9.2 mg/dL (8.4-10.5); GFR NON-AFRICAN AMERICAN > 60; HDL CHOLESTEROL 28 mg/dL (29-60)
[2017-11-01 07:48] LABS: LDL CHOLESTEROL 73 mg/dL (0-129)
[2017-11-01] MEDS: Insulin Lispro (HUMAlog) HIGH Coverage SC SCH ×3 (08:01→17:56)
[2017-11-01] MEDS: Insulin Human NPH/Reg 70/30 Vial(3 ml) SC SCH ×2 (08:01→17:56)
[2017-11-01 08:12] LABS: FREE T4 1.09 ng/dL (0.78-2.19); T4 8.4 ug/dL (5.5-11.0)
--- NOTE | 2017-11-01 08:51 | CP.PCM.PN ---
Subjective - Date & Time of Evaluation Date of Evaluation: 11/01/17 Time of Evaluation: 07:45 - Subjective Subjective: (covering for Dr. Rg) Patient is seen this morning. He says that he feels better. He complains of dysuria but says that it is improved from yesterday. Objective - Vital Signs/Intake and Output Vital Signs (last 24 hours): Temp Pulse Resp BP Pulse Ox 97.5 F L 63 18 178/93 H 100 11/01/17 08:13 11/01/17 08:13 11/01/17 08:13 11/01/17 08:13 11/01/17 08:13 Intake and Output: 11/01/17 11/01/17 06:59 18:59 Intake Total 500 Balance 500 - Medications Medications: Current Medications Acetaminophen (Tylenol 325mg Tab) 650 mg PO Q6 PRN PRN Reason: TEMP>=99.5F Acetaminophen (Tylenol 650 Mg Supp) 650 mg RC Q6H PRN PRN Reason: TEMP>=99.5F Aspirin (Ecotrin) 81 mg PO DAILY [facility] Last Admin: 10/31/17 16:22 Dose: 81 mg Atorvastatin Calcium (Lipitor) 40 mg PO DIN [facility] [place] Last Admin: 10/31/17 18:18 Dose: 40 mg Dextrose (Dextrose 50% Inj) 0 ml IV STAT PRN; Protocol PRN Reason: Hypoglycemia Protocol Docusate Sodium (Colace) 100 mg PO TID [facility] Last Admin: 10/31/17 18:18 Dose: 100 mg Famotidine (Pepcid) 20 mg PO HS [facility] [place] Last Admin: 10/31/17 22:37 Dose: 20 mg Finasteride (Proscar) 5 mg PO DAILY [facility] [place] Heparin Sodium (Porcine) (Heparin) 5,000 units SC Q8 DAISY PRN Reason: Protocol Last Admin: 11/01/17 07:32 Dose: 5,000 units Sodium Chloride (Sodium Chloride 0.9%) 1,000 mls @ 100 mls/hr IV .Q10H [facility] [place] Last Admin: 10/31/17 22:32 Dose: 100 mls/hr Sodium Chloride (Sodium Chloride 0.9%) 1,000 mls @ 100 mls/hr IV .Q10H [facility] [place] Cefepime HCl (Maxipime 1gm) 1 gm in 100 mls @ 100 mls/hr IVPB Q12 DAISY PRN Reason: Protocol Last Admin: 10/31/17 22:17 Dose: 100 mls/hr Dextrose (Dextrose 5% In Water 1000 Ml) 1,000 mls @ 0 mls/hr IV .Q0M PRN; Protocol; Per Protocol PRN Reason: Hypoglycemia Protocol Fluconazole 100 mg/ (Miscellaneous) 50 mls @ 100 mls/hr IVPB DAILY [facility] [place] PRN Reason: Protocol Last Admin: 11/01/17 05:04 Dose: 100 mls/hr Insulin Human Lispro (Humalog High) 0 units SC AC [facility] [place] PRN Reason: Protocol Last Admin: 11/01/17 08:01 Dose: 2 units Lorazepam (Ativan) 0.5 mg IVP ONCE PRN; Protocol PRN Reason: Insomnia Last Admin: 10/31/17 23:28 Dose: 0.5 mg Losartan Potassium (Cozaar) 50 mg PO DAILY [facility] [place] Last Admin: 10/31/17 16:22 Dose: 50 mg Ondansetron HCl (Zofran Inj) 4 mg IVP Q4H PRN PRN Reason: Nausea/Vomiting Pantoprazole Sodium (Protonix Ec Tab) 40 mg PO 0600 [facility] [place] Last Admin: 11/01/17 05:05 Dose: 40 mg Polyethylene Glycol (Miralax) 17 gm PO BID [facility] [place] Last Admin: 10/31/17 18:18 Dose: 17 gm Propranolol HCl (Inderal) 20 mg PO BID [facility] [place] Last Admin: 10/31/17 18:18 Dose: 20 mg Tamsulosin HCl (Flomax) 0.4 mg PO DAILY [facility] [place] - Labs Labs: 11/01/17 06:00 11/01/17 06:00 - Constitutional Appears: No Acute Distress - Head Exam Head Exam: ATRAUMATIC, NORMOCEPHALIC - Respiratory Exam Respiratory Exam: Clear to Ausculation Bilateral, NORMAL BREATHING PATTERN - Cardiovascular Exam Cardiovascular Exam: +S1, +S2 - GI/Abdominal Exam GI & Abdominal Exam: Soft, Normal Bowel Sounds. absent: Tenderness - Neurological Exam Neurological Exam: Alert, Awake, Oriented x3 Assessment and Plan - Assessment and Plan (Free Text) Assessment: Cystitis - continue IV Cefepime and Fluconazole. Awaiting results of urine culture. BPH - continue Flomax and Proscar Hypertension - continue Cozaar and Propanolol; blood pressure is elevated this morning; will add Amlodipine Diabetes - continue insulin and accuchecks with SS coverage
[2017-11-01] MEDS: Cefepime 1gm in NS 100ml 1 GM/100 ML BAG IVPB SCH ×2 (10:54→21:49)
[2017-11-01] MEDS: POLYETHYLENE GLYCOL 3350 17 GM/Dose PACKET PO SCH ×2 (10:54→17:57)
--- NOTE | 2017-11-01 14:56 | CP.PCM.CON ---
History of Present Illness - History of Present Illness History of Present Illness: 77 year old male with PMH of benign prostatic hyperplasia, HTN, DM, GERD came in to [facility] complaining of dysuria, pain in the suprapubic area with some pain in the right flank area for the past 4-5 days. He visited his PMD a few days ago and was told to take Ciprofloxacin and took a dose of it but his symptoms continued and was told to go to the ED to be further evaluated. He denies having fever or chills, no nausea or vomiting, no chest pain, no SOB, no cough or rhinorrhea, no abdominal pain, no sore throat, no skin rash, no bleeding, no penile discharge, no diarrhea., no hematuria. Infectious Diseases consult is requested to further evaluate and manage. Review of Systems - Review of Systems All systems: reviewed and no additional remarkable complaints except (as per HPI ) Past Patient History - Past Social History Smoking Status: Never Smoked - CARDIAC Hx Cardiac Disorders: Yes - PULMONARY Hx Respiratory Disorders: No - NEUROLOGICAL Hx Neurological Disorder: No - HEENT Hx HEENT Problems: No - RENAL Hx Chronic Kidney Disease: No - ENDOCRINE/METABOLIC Hx Endocrine Disorders: Yes Hx Diabetes Mellitus Type 2: Yes - HEMATOLOGICAL/ONCOLOGICAL Hx Blood Disorders: No - INTEGUMENTARY Hx Dermatological Problems: No - MUSCULOSKELETAL/RHEUMATOLOGICAL Hx Musculoskeletal Disorders: No - GASTROINTESTINAL Hx Gastrointestinal Disorders: Yes Hx Gastroesophageal Reflux: Yes - GENITOURINARY/GYNECOLOGICAL Hx Genitourinary Disorders: Yes Hx Prostate Problems: Yes - PSYCHIATRIC Hx Psychophysiologic Disorder: No Hx Substance Use: No - SURGICAL HISTORY Hx Surgeries: Yes (1982 CIRCUMCISION, 1982 LUMP ON BACK REMOVED) - ANESTHESIA Hx Anesthesia Reactions: No Hx Malignant Hyperthermia: No Meds Allergies/Adverse Reactions: Allergies Allergy/AdvReac Type Severity Reaction Status Date / Time No Known Allergies Allergy Verified 10/31/17 15:42 - Medications Medications: Current Medications Acetaminophen (Tylenol 325mg Tab) 650 mg PO Q6 PRN PRN Reason: TEMP>=99.5F Acetaminophen (Tylenol 650 Mg Supp) 650 mg RC Q6H PRN PRN Reason: TEMP>=99.5F Amlodipine Besylate (Norvasc) 5 mg PO DAILY [facility] Aspirin (Ecotrin) 81 mg PO DAILY [facility] Last Admin: 10/31/17 16:22 Dose: 81 mg Atorvastatin Calcium (Lipitor) 40 mg PO DIN [facility] Last Admin: 10/31/17 18:18 Dose: 40 mg Dextrose (Dextrose 50% Inj) 0 ml IV STAT PRN; Protocol PRN Reason: Hypoglycemia Protocol Docusate Sodium (Colace) 100 mg PO TID [facility] Last Admin: 10/31/17 18:18 Dose: 100 mg Famotidine (Pepcid) 20 mg PO HS [facility] Last Admin: 10/31/17 22:37 Dose: 20 mg Finasteride (Proscar) 5 mg PO DAILY [facility] Heparin Sodium (Porcine) (Heparin) 5,000 units SC Q8 DAISY PRN Reason: Protocol Last Admin: 11/01/17 07:32 Dose: 5,000 units Sodium Chloride (Sodium Chloride 0.9%) 1,000 mls @ 100 mls/hr IV .Q10H [facility] Cefepime HCl (Maxipime 1gm) 1 gm in 100 mls @ 100 mls/hr IVPB Q12 DAISY PRN Reason: Protocol Last Admin: 10/31/17 22:17 Dose: 100 mls/hr Dextrose (Dextrose 5% In Water 1000 Ml) 1,000 mls @ 0 mls/hr IV .Q0M PRN; Protocol; Per Protocol PRN Reason: Hypoglycemia Protocol Fluconazole 100 mg/ (Miscellaneous) 50 mls @ 100 mls/hr IVPB DAILY [facility] PRN Reason: Protocol Last Admin: 11/01/17 05:04 Dose: 100 mls/hr Insulin Human Lispro (Humalog High) 0 units SC AC [facility] PRN Reason: Protocol Last Admin: 11/01/17 08:01 Dose: 2 units Lorazepam (Ativan) 0.5 mg IVP ONCE PRN; Protocol PRN Reason: Insomnia Last Admin: 10/31/17 23:28 Dose: 0.5 mg Losartan Potassium (Cozaar) 50 mg PO DAILY [facility] Last Admin: 10/31/17 16:22 Dose: 50 mg Ondansetron HCl (Zofran Inj) 4 mg IVP Q4H PRN PRN Reason: Nausea/Vomiting Pantoprazole Sodium (Protonix Ec Tab) 40 mg PO 0600 [facility] Last Admin: 11/01/17 05:05 Dose: 40 mg Polyethylene Glycol (Miralax) 17 gm PO BID [facility] Last Admin: 10/31/17 18:18 Dose: 17 gm Propranolol HCl (Inderal) 20 mg PO BID [facility] Last Admin: 08/20/18 18:18 Dose: 20 mg Tamsulosin HCl (Flomax) 0.4 mg PO DAILY [facility] Physical Exam - Constitutional Appears: Chronically Ill - Head Exam Head Exam: NORMAL INSPECTION - ENT Exam ENT Exam: Mucous Membranes Moist - Neck Exam Neck exam: Negative for: Meningismus - Respiratory Exam Respiratory Exam: Decreased Breath Sounds - Cardiovascular Exam Cardiovascular Exam: +S1, +S2 - GI/Abdominal Exam GI & Abdominal Exam: Soft, Tenderness (suprapubic) - Back Exam Back exam: CVA tenderness (R) (slight) Results - Vital Signs Recent Vital Signs: Last Vital Signs Temp 97.5 F L 11/01/17 08:13 Pulse 63 11/01/17 08:13 Resp 18 11/01/17 08:13 BP 178/93 H 11/01/17 08:13 Pulse Ox 100 11/01/17 08:13 - Labs Result Diagrams: 11/01/17 06:00 11/01/17 06:00 Labs: Laboratory Results - last 24 hr 10/31/17 10/31/17 11/01/17 15:25 21:19 06:00 WBC 7.5 RBC 4.73 Hgb 10.7 L Hct 32.6 L MCV 68.9 L MCH 22.6 L MCHC 32.8 RDW 14.5 Plt Count 345 MPV 9.6 Gran % 58.7 Lymph % (Auto) 28.9 Day % (Auto) 8.8 H Eos % (Auto) 3.2 Baso % (Auto) 0.4 Gran # 4.40 Lymph # (Auto) 2.2 Day # (Auto) 0.7 H Eos # (Auto) 0.2 Baso # (Auto) 0.03 Sodium Potassium Chloride Carbon Dioxide Anion Gap BUN Creatinine Est GFR ( Amer) Est GFR (Non-Af Amer) POC Glucose (mg/dL) 268 H 260 H Random Glucose Calcium Phosphorus Magnesium Total Bilirubin Direct Bilirubin AST ALT Alkaline Phosphatase Total Protein Albumin Globulin Albumin/Globulin Ratio Triglycerides Cholesterol LDL Cholesterol Direct HDL Cholesterol Prostate Specific Ag Free T4 Thyroxine (T4) TSH 3rd Generation 11/01/17 11/01/17 11/01/17 06:00 06:00 07:16 WBC RBC Hgb Hct MCV MCH MCHC RDW Plt Count MPV Gran % Lymph % (Auto) Day % (Auto) Eos % (Auto) Baso % (Auto) Gran # Lymph # (Auto) Day # (Auto) Eos # (Auto) Baso # (Auto) Sodium 138 Potassium 3.9 Chloride 104 Carbon Dioxide 24 Anion Gap 14 BUN 14 Creatinine 0.8 Est GFR ( Amer) > 60 Est GFR (Non-Af Amer) > 60 POC Glucose (mg/dL) 189 H Random Glucose 186 H Calcium 9.2 Phosphorus 2.9 Magnesium 1.8 Total Bilirubin 0.3 Direct Bilirubin 0.2 AST 37 ALT 29 Alkaline Phosphatase 100 Total Protein 7.2 Albumin 3.5 Globulin 3.6 Albumin/Globulin Ratio 1.0 L Triglycerides 99 Cholesterol 135 LDL Cholesterol Direct 73 HDL Cholesterol 28 L Prostate Specific Ag 3.5 H Free T4 1.09 Thyroxine (T4) 8.4 TSH 3rd Generation 3.61 Assessment & Plan - Assessment and Plan (Free Text) Plan: Assessment UTI with cystitis in this patient with BPH, with possible right sided pyelonephritis HTN DM GERD Plan Started patient on Cefepime pending final blood and urine cx results; there was yeast noted on urinalysis and will follow up urine cx (PMD started Diflucan) will monitor clinically
[2017-11-02] MEDS: Pantoprazole 40 mg EC Tab PO SCH (05:34)
[2017-11-02] MEDS: Sodium Chloride 0.9% 1,000 ML IV SCH ×2 (05:36→21:29)
[2017-11-02] MEDS: Insulin Human NPH/Reg 70/30 Vial(3 ml) SC SCH ×2 (08:11→19:01)
[2017-11-02] MEDS: Insulin Lispro (HUMAlog) HIGH Coverage SC SCH ×3 (08:12→19:01)
[2017-11-02] MEDS ORDERED: Ergocalciferol 50,000 Intl Units Cap PO SCH (08:45)
[2017-11-02] MEDS: POLYETHYLENE GLYCOL 3350 17 GM/Dose PACKET PO SCH ×3 (09:45→19:07)
[2017-11-02] MEDS: Cefepime 1gm in NS 100ml 1 GM/100 ML BAG IVPB SCH (09:45)
[2017-11-02] MEDS ORDERED: Magnesium Citrate Oral SOL (300 ml) PO ONE (10:30)
[2017-11-02] MEDS: Fluconazole IV 200mg/100 ml NS 100 MG in Premixed IV 1 EA IVPB SCH (11:14)
[2017-11-02] MEDS ORDERED: Dextrose 50% SYRINGE Inj (50 ml) IV PRN (11:14)
--- NOTE | 2017-11-02 12:28 | CP.PCM.PN ---
Subjective - Date & Time of Evaluation Date of Evaluation: 11/02/17 Time of Evaluation: 11:25 - Subjective Subjective: Patient has much improved suprapubic and right flank pain, no fevers, no dysuria or hematuria, no nausea or diarrhea. Objective - Vital Signs/Intake and Output Vital Signs (last 24 hours): Temp Pulse Resp BP Pulse Ox 98 F 65 20 155/73 H 98 11/02/17 06:00 11/02/17 06:00 11/02/17 06:00 11/02/17 06:00 11/02/17 06:00 Intake and Output: 11/02/17 11/02/17 06:59 18:59 Intake Total 180 Output Total 800 Balance -620 - Medications Medications: Current Medications Acetaminophen (Tylenol 325mg Tab) 650 mg PO Q6 PRN PRN Reason: TEMP>=99.5F Acetaminophen (Tylenol 650 Mg Supp) 650 mg RC Q6H PRN PRN Reason: TEMP>=99.5F Amlodipine Besylate (Norvasc) 5 mg PO DAILY [facility] Last Admin: 11/01/17 10:54 Dose: 5 mg Aspirin (Ecotrin) 81 mg PO DAILY [facility] Last Admin: 11/01/17 10:53 Dose: 81 mg Atorvastatin Calcium (Lipitor) 40 mg PO DIN [facility] Last Admin: 11/01/17 17:57 Dose: 40 mg Dextrose (Dextrose 50% Inj) 0 ml IV STAT PRN; Protocol PRN Reason: Hypoglycemia Protocol Docusate Sodium (Colace) 100 mg PO TID [facility] Last Admin: 11/01/17 17:56 Dose: 100 mg Ergocalciferol (Drisdol 50,000 Intl Units Cap) 1 cap PO Q7D [facility] Famotidine (Pepcid) 20 mg PO HS [facility] Last Admin: 11/01/17 21:48 Dose: 20 mg Finasteride (Proscar) 5 mg PO DAILY [facility] Last Admin: 11/01/17 10:54 Dose: 5 mg Heparin Sodium (Porcine) (Heparin) 5,000 units SC Q8 DAISY PRN Reason: Protocol Last Admin: 11/02/17 05:34 Dose: 5,000 units Sodium Chloride (Sodium Chloride 0.9%) 1,000 mls @ 100 mls/hr IV .Q10H [facility] Last Admin: 11/02/17 05:36 Dose: 100 mls/hr Dextrose (Dextrose 5% In Water 1000 Ml) 1,000 mls @ 0 mls/hr IV .Q0M PRN; Protocol; Per Protocol PRN Reason: Hypoglycemia Protocol Fluconazole 100 mg/ (Miscellaneous) 50 mls @ 100 mls/hr IVPB DAILY [facility] PRN Reason: Protocol Last Admin: 11/01/17 12:56 Dose: 100 mls/hr Cefazolin Sodium (Ancef 1gm In Ns) 1 gm in 100 mls @ 100 mls/hr IVPB Q8 DAISY PRN Reason: Protocol Insulin Human Lispro (Humalog High) 0 units SC AC DAISY PRN Reason: Protocol Last Admin: 11/02/17 08:12 Dose: 7 units Lorazepam (Ativan) 0.5 mg IVP ONCE PRN; Protocol PRN Reason: Insomnia Last Admin: 10/31/17 23:28 Dose: 0.5 mg Losartan Potassium (Cozaar) 100 mg PO DAILY [facility] Last Admin: 11/01/17 10:53 Dose: 100 mg Ondansetron HCl (Zofran Inj) 4 mg IVP Q4H PRN PRN Reason: Nausea/Vomiting Pantoprazole Sodium (Protonix Ec Tab) 40 mg PO 0600 [facility] Last Admin: 11/02/17 05:34 Dose: 40 mg Polyethylene Glycol (Miralax) 17 gm PO BID [facility] Last Admin: 11/01/17 17:57 Dose: 17 gm Propranolol HCl (Inderal) 20 mg PO BID [facility] Last Admin: 11/01/17 17:57 Dose: 20 mg Tamsulosin HCl (Flomax) 0.4 mg PO DAILY [facility] Last Admin: 11/01/17 10:53 Dose: 0.4 mg - Labs Labs: 11/01/17 06:00 11/01/17 06:00 - Constitutional Appears: Non-toxic, No Acute Distress - Head Exam Head Exam: NORMAL INSPECTION - ENT Exam ENT Exam: Mucous Membranes Moist - Neck Exam Neck Exam: absent: Meningismus - Respiratory Exam Respiratory Exam: Decreased Breath Sounds - Cardiovascular Exam Cardiovascular Exam: +S1, +S2 - GI/Abdominal Exam GI & Abdominal Exam: Soft. absent: Tenderness Assessment and Plan - Assessment and Plan (Free Text) Plan: Assessment UTI with cystitis in this patient with BPH, with possible right sided pyelonephritis, growing Group B Strep HTN DM GERD Plan will switch Cefepime to Cefazolin day 2 of antibiotics; there was yeast noted on urinalysis and will follow up urine cx (PMD started Diflucan) - recommend 10 -14 days of antibiotics will continue to monitor clinically
--- NOTE | 2017-11-02 12:37 | PN ---
Copied To: Claude Rg MD Attending MD: Claude Rg MD DATE: 11/02/2017 SUBJECTIVE: The patient is seen in room , bed 2. The patient is out of bed to chair. Overnight nurses' notes were reviewed. The patient is complaining of constipation and no bowel movement. PHYSICAL EXAMINATION: VITAL SIGNS: The patient's T-max is 98.5; telemetry shows sinus rhythm; heart rate 65, 77; blood pressure 155/73, 148/82, 178/93, 168/93; respirations 18-20; O2 sat 98-99. HEENT: Head examination normocephalic, atraumatic. HEENT examination shows pinkish pale conjunctivae, anicteric sclerae. No oropharyngeal lesion. No neck rigidity. CHEST: Symmetrical. LUNGS: Shows no rales, crackles or wheezing. CARDIOVASCULAR: S1 and S2. Regular rhythm. ABDOMEN: Soft, slightly protuberant. Positive bowel sound. No costovertebral angle tenderness. GENITALIA: Male. RECTAL: Deferred. EXTREMITIES: Shows no pitting edema. No calf tenderness. No Homans sign. NEUROLOGICAL: The patient is alert, awake, oriented x3. Cranial nerves II through XII intact. Gait examination is not tested. VASCULAR: Palpable pulses. MUSCULOSKELETAL: Body mass index is 29. DIAGNOSTICS: Since hospitalization were reviewed. IMPRESSION AND PLAN: 1. Severe cystitis with Streptococcus agalactiae group B urinary tract infection. 2. Constipation. 3. Hypertension. 4. Microcytic anemia. 5. Hyperglycemia. 6. Uncontrolled insulin-requiring diabetes mellitus with hemoglobin A1c of 9.4 and fructosamine of 294. 7. History of hyperlipidemia. 8. Elevated prostate specific antigen of 3.5. 9. Hypovitaminosis D. 10. Streptococcal agalactiae group B urinary tract infection with proteinuria, microscopic hematuria, pyuria, bacteriuria, funguria. 11. Severe cystitis with severe mural thickenings and irregularity of the bladder wall with several urinary bladder diverticulum. 12. Severe prostatomegaly. 13. Possible severe prostatitis. 14. Uncontrolled insulin-requiring diabetes mellitus with hyperglycemia. 15. Constipation. 16. History of prostatic hypertrophy. Plan at this time, the patient has been ordered repeat labs. Repeat urine culture had been ordered. Diabetic referral ordered. Infectious Disease consultation ordered. Social Work evaluation, TCU evaluation ordered. CURRENT MEDICATIONS: Ancef 1 g IV every 8, Ativan. The patient has been ordered magnesium citrate one bottle, Colace 100 mg three times a day, Cozaar increased to 100 mg daily. The patient is on hypoglycemia protocol, Diflucan 200 mg IV daily, Drisdol 50,000 weekly, Ecotrin 81 mg daily, Flomax 0.4 mg daily, heparin 500 units subcu every 8 for DVT prophylaxis, Humalog high-dose sliding scale coverage, Humulin 70/30 NPH 35 units with breakfast and supper has been ordered, which will be increased to 40 units to obtain glycemia control. The patient's insulin and Humulin 70/30 has been increased to 40 units with breakfast and dinner. The patient is on Inderal 20 twice a day, Lipitor 40 mg daily, MiraLax 17 twice a day, Proscar 5 mg daily. Pepcid will be discontinued. The patient will be continued on Protonix 40 mg daily. The patient is on IV fluid 0.9 normal saline at 100 mL an hour, Tylenol p.r.n., Zofran 4 IV every 4 p.r.n. The patient has been ordered out of bed, SCDs, PAULA stockings. Physical therapy, occupational therapy will be ordered. The patient's further management will be dependent upon the patient's clinical condition, hemodynamic status and as per the patient's response to therapeutic intervention, as per the patient's diagnostic test results and as per recommendation by all the physicians involved in the care of the patient. The patient understands and acknowledges the details of his medical condition, his diagnosis was explained to the patient in layman language. All questions concerned answered, which he acknowledged and understand. At present, the patient's IV antibiotic duration will be dependent upon the Infectious Disease recommendation and we will await repeat urine culture. Dictated and electronically signed, not read. Claude Rg MD
[2017-11-02] MEDS: ceFAZolin 1 gm in NS 1 GM/100 ML BAG IVPB SCH ×3 (15:16→21:28)
[2017-11-03] MEDS: Pantoprazole 40 mg EC Tab PO SCH (05:56)
[2017-11-03] MEDS: ceFAZolin 1 gm in NS 1 GM/100 ML BAG IVPB SCH ×3 (05:56→21:24)
[2017-11-03 06:43] LABS: BASO # 0.03 K/mm3 (0.0-2.0); BASO % 0.4 % (0.0-3.0); EOS # 0.2 (0.0-0.7); EOS % 2.8 % (1.5-5.0); GRAN # 3.94 (1.4-6.5); GRAN % 52.3 % (50.0-68.0); LYMPH # 2.6 (1.2-3.4); LYMPH % 34.5 % (22.0-35.0); MEAN CELL VOLUME 68.5 fl (80.0-105.0); MEAN CORPUSCULAR HEMOGLOBIN 22.8 pg (25.0-35.0); MEAN CORPUSCULAR HGB CONC 33.3 g/dl (31.0-37.0); MEAN PLATELET VOLUME 9.4 fl (7.0-11.0); MONO # 0.8 (0.1-0.6); RBC 4.82 10^6/uL (3.5-6.1); RED CELL DISTRIBUTION WIDTH 14.6 % (11.5-14.5); WHITE BLOOD COUNT 7.5 10^3/ul (4.5-11.0)
[2017-11-03 07:20] LABS: ALBUMIN 3.3 g/dL (3.0-4.8); ALT/SGPT 32 U/L (7-56); AST/SGOT 31 U/L (17-59); BLOOD UREA NITROGEN 11 mg/dL (7-21); CALCIUM 8.9 mg/dL (8.4-10.5); GFR NON-AFRICAN AMERICAN > 60
[2017-11-03] MEDS: Insulin Lispro (HUMAlog) HIGH Coverage SC SCH ×3 (08:34→16:50)
[2017-11-03] MEDS: Insulin Human NPH/Reg 70/30 Vial(3 ml) SC SCH ×2 (08:34→16:50)
[2017-11-03] MEDS: POLYETHYLENE GLYCOL 3350 17 GM/Dose PACKET PO SCH ×2 (09:34→16:59)
[2017-11-03 11:02] LABS: GLYCOMARK(R) 2.8 mcg/mL (7.3-36.6)
[2017-11-03] MEDS: Sodium Chloride 0.9% 1,000 ML IV SCH (11:22)
--- NOTE | 2017-11-03 14:28 | PN ---
Copied To: Claude Rg MD Attending MD: Claude Rg MD DATE: 11/03/2017 SUBJECTIVE: The patient was seen in room 577, bed 2. The patient is seen lying in the bed. The patient reports resolution of his constipation. The patient denies any dysuria, frequency or burning. PHYSICAL EXAMINATION: VITAL SIGNS: T-max 98.2, heart rate 75, 74, blood pressure 137/79, respiration 18, O2 sat 98-99%. GENERAL: The patient was seen lying in the bed. HEENT: Head examination, normocephalic, atraumatic. HEENT examination shows pink conjunctivae. Anicteric sclerae. No oropharyngeal lesion. Dry oral mucosa. No neck rigidity. CHEST: Symmetrical. LUNGS: Shows no rales, crackles or wheezing. CARDIOVASCULAR: S1, S2, regular rhythm. ABDOMEN: Soft. Positive bowel sounds. Slightly protuberant. No hepatosplenomegaly noted. No guarding. No rigidity. No rebound tenderness. No costovertebral angle tenderness. GENITALIA: Male. RECTAL: Deferred. EXTREMITIES: Shows no pitting edema, no calf numbness, no Homans sign. NEUROLOGIC: The patient is alert, awake, oriented x3. Cranial nerves II-XII intact. Gait examination is independent. VASCULAR: Palpable pulses. MUSCULOSKELETAL: Shows a body mass index of 29. DIAGNOSTICS: On 11/03/2017: WBC 7.5, hemoglobin and hematocrit 11 and 33, MCV 68, platelet 333. Sodium 138, potassium 4.3, chloride 106, CO2 of 25, anion gap 11, BUN 11, creatinine 0.8, GFR greater than 60, glucose 235, 294, calcium 8.9, phosphorus 2.7, magnesium 2.2. LFTs are normal. Vitamin D 25-hydroxy 28.3. Urine drug screen negative. Urine cultures are growing beta hemolytic group B strep sensitive to ampicillin, penicillin, vanco. IMPRESSION AND PLAN: 1. Beta-hemolytic group B Streptococcus urinary tract infection and severe cystitis. 2. History of hypertension, insulin-requiring diabetes mellitus, history of hyperlipidemia. 3. Mild microcytic anemia. 4. Hyperglycemia with uncontrolled insulin-requiring diabetes mellitus with hemoglobin A1c of 9.4 and hyper-fructose anemia with elevated fructose level. 5. Elevated prostate specific antigen of 3.5. 6. Hypovitaminosis D. 7. Beta-hemolytic group B Streptococcus urinary tract infection with proteinuria, hematuria, pyuria, bacteriuria, funguria. 8. Severe cystitis and severe mural thickening and irregularity of the bladder wall with several urinary bladder diverticulum from anterior and superior surfaces 9. Severe prostatomegaly with history of prostatic hypertrophy. 10. History of hypertension, hyperlipidemia, insulin-requiring diabetes mellitus. 11. Constipation. 12. Prostatic hypertrophy. PLAN: At this time, patient's repeat urine cultures are pending which was ordered yesterday. The patient's case was referred for diabetic education. Current medications, Ancef 1 g IV every 8 hours, Colace 100 mg three times a day, Cozaar increased to 100 mg daily, hypoglycemia protocol is in place, Drisdol 50,000 weekly, Ecotrin 81 mg daily, Flomax 0.4 mg daily, heparin 5000 subcu every 8 hours, Humulin 70/30 of 40 units with breakfast and dinner, Inderal 20 mg twice a day, Lipitor 40 mg daily, MiraLax 17 g twice a day, Proscar 5 mg daily, Protonix 40 mg daily, IV fluid 0.9 normal saline at 100 mL an hour, Tylenol p.r.n., Zofran 4 mg IV every 4 hours p.r.n. The patient is on consistent carbohydrate diet, out of bed, PAULA stockings, SCDs, physical therapy, occupational therapy ordered. At present, the patient will be continued on the intravenous antibiotics as per Infectious Disease recommendation. The patient will be considered for discharge once the patient's IV antibiotics are stopped by Infectious Disease. The patient is updated about his condition, diagnosis, treatment plan, management plan at length and all questions concerned answered, which he acknowledged understood. Dictated and electronically signed, not read. Claude Rg MD
--- NOTE | 2017-11-03 16:41 | CP.PCM.PN ---
Subjective - Date & Time of Evaluation Date of Evaluation: 11/03/17 Time of Evaluation: 11:50 - Subjective Subjective: No more suprapubic pain, right flank pain is improved, no fevers, no nausea, no diarrhea. Objective - Vital Signs/Intake and Output Vital Signs (last 24 hours): Temp Pulse Resp BP Pulse Ox 98 F 74 18 143/74 99 11/02/17 23:09 11/02/17 23:09 11/02/17 23:09 11/02/17 23:09 11/02/17 23:09 Intake and Output: 11/03/17 11/03/17 06:59 18:59 Intake Total 2 Output Total 502 Balance -500 - Medications Medications: Current Medications Acetaminophen (Tylenol 325mg Tab) 650 mg PO Q6 PRN PRN Reason: TEMP>=99.5F Acetaminophen (Tylenol 650 Mg Supp) 650 mg RC Q6H PRN PRN Reason: TEMP>=99.5F Aspirin (Ecotrin) 81 mg PO DAILY [facility] Last Admin: 11/02/17 09:44 Dose: 81 mg Atorvastatin Calcium (Lipitor) 40 mg PO DIN [facility] Last Admin: 11/02/17 19:02 Dose: 40 mg Dextrose (Dextrose 50% Inj) 0 ml IV STAT PRN; Protocol PRN Reason: Hypoglycemia Protocol Dextrose (Dextrose 50% Inj) 0 ml IV STAT PRN; Protocol PRN Reason: Hypoglycemia Protocol Docusate Sodium (Colace) 100 mg PO TID [facility] Last Admin: 11/02/17 19:00 Dose: 100 mg Ergocalciferol (Drisdol 50,000 Intl Units Cap) 1 cap PO Q7D [facility] Last Admin: 11/02/17 09:44 Dose: 1 cap Finasteride (Proscar) 5 mg PO DAILY [facility] Last Admin: 11/02/17 09:44 Dose: 5 mg Heparin Sodium (Porcine) (Heparin) 5,000 units SC Q8 DAISY PRN Reason: Protocol Last Admin: 11/03/17 05:56 Dose: 5,000 units Sodium Chloride (Sodium Chloride 0.9%) 1,000 mls @ 100 mls/hr IV .Q10H [facility] Last Admin: 11/02/17 21:29 Dose: 100 mls/hr Dextrose (Dextrose 5% In Water 1000 Ml) 1,000 mls @ 0 mls/hr IV .Q0M PRN; Protocol; Per Protocol PRN Reason: Hypoglycemia Protocol Cefazolin Sodium (Ancef 1gm In Ns) 1 gm in 100 mls @ 100 mls/hr IVPB Q8 [facility] PRN Reason: Protocol Last Admin: 11/03/17 05:56 Dose: 100 mls/hr Dextrose (Dextrose 5% In Water 1000 Ml) 1,000 mls @ 0 mls/hr IV .Q0M PRN; Protocol; Per Protocol PRN Reason: Hypoglycemia Protocol Insulin Human Lispro (Humalog High) 0 units SC AC [facility] PRN Reason: Protocol Last Admin: 11/02/17 19:01 Dose: Not Given Lorazepam (Ativan) 0.5 mg IVP ONCE PRN; Protocol PRN Reason: Insomnia Last Admin: 10/31/17 23:28 Dose: 0.5 mg Losartan Potassium (Cozaar) 100 mg PO DAILY [facility] Last Admin: 11/02/17 09:44 Dose: 100 mg Ondansetron HCl (Zofran Inj) 4 mg IVP Q4H PRN PRN Reason: Nausea/Vomiting Pantoprazole Sodium (Protonix Ec Tab) 40 mg PO 0600 [facility] Last Admin: 11/03/17 05:56 Dose: 40 mg Polyethylene Glycol (Miralax) 17 gm PO BID [facility] Last Admin: 11/02/17 19:07 Dose: Not Given Propranolol HCl (Inderal) 20 mg PO BID [facility] Last Admin: 11/02/17 19:02 Dose: 20 mg Tamsulosin HCl (Flomax) 0.4 mg PO DAILY [facility] Last Admin: 11/02/17 09:44 Dose: 0.4 mg - Labs Labs: 11/03/17 06:00 11/01/17 06:00 - Constitutional Appears: Chronically Ill - Head Exam Head Exam: NORMAL INSPECTION - Neck Exam Neck Exam: absent: Meningismus - Respiratory Exam Respiratory Exam: Decreased Breath Sounds - Cardiovascular Exam Cardiovascular Exam: +S1, +S2 - GI/Abdominal Exam GI & Abdominal Exam: Soft. absent: Tenderness Assessment and Plan - Assessment and Plan (Free Text) Plan: Assessment UTI with cystitis in this patient with BPH, with possible right sided pyelonephritis, growing Group B Strep HTN DM GERD Plan continue Cefazolin day 3 of antibiotics; there was yeast noted on urinalysis but urine cx did not show maria dolores - will d/c Diflucan - recommend 10-14 days of antibiotics - can switch to PO antibiotics when ready for discharge will continue to monitor clinically
[2017-11-04] MEDS: Pantoprazole 40 mg EC Tab PO SCH (06:32)
[2017-11-04] MEDS: ceFAZolin 1 gm in NS 1 GM/100 ML BAG IVPB SCH ×2 (06:34→14:44)
[2017-11-04 07:42] VITALS: RESP 20; O2SAT 100
[2017-11-04] MEDS: Insulin Lispro (HUMAlog) HIGH Coverage SC SCH ×3 (08:40→17:38)
[2017-11-04] MEDS: Insulin Human NPH/Reg 70/30 Vial(3 ml) SC SCH ×2 (08:41→17:39)
[2017-11-04] MEDS: POLYETHYLENE GLYCOL 3350 17 GM/Dose PACKET PO SCH ×2 (09:47→17:40)
[2017-11-04] MEDS: Sodium Chloride 0.9% 1,000 ML IV SCH (11:59)
[2017-11-04 15:06] VITALS: PULSE 56; TEMP 97.6
[2017-11-04 17:48] VITALS: BP 152/82
--- NOTE | 2017-11-04 22:15 | CP.PCM.PN ---
Subjective - Date & Time of Evaluation Date of Evaluation: 11/04/17 Time of Evaluation: 12:50 - Subjective Subjective: No more suprapubic pain, right flank pain is better as well, no nausea, no fevers. Objective - Vital Signs/Intake and Output Vital Signs (last 24 hours): Temp Pulse Resp BP Pulse Ox 98.2 F 75 18 137/79 98 11/03/17 06:00 11/03/17 09:34 11/03/17 06:00 11/03/17 09:34 11/03/17 06:00 Intake and Output: 11/03/17 11/03/17 06:59 18:59 Intake Total 2 240 Output Total 502 Balance -500 240 - Medications Medications: Current Medications Acetaminophen (Tylenol 325mg Tab) 650 mg PO Q6 PRN PRN Reason: TEMP>=99.5F Acetaminophen (Tylenol 650 Mg Supp) 650 mg RC Q6H PRN PRN Reason: TEMP>=99.5F Aspirin (Ecotrin) 81 mg PO DAILY [facility] Last Admin: 11/03/17 09:34 Dose: 81 mg Atorvastatin Calcium (Lipitor) 40 mg PO DIN [facility] Last Admin: 11/02/17 19:02 Dose: 40 mg Dextrose (Dextrose 50% Inj) 0 ml IV STAT PRN; Protocol PRN Reason: Hypoglycemia Protocol Docusate Sodium (Colace) 100 mg PO TID [facility] Last Admin: 11/03/17 15:00 Dose: Not Given Ergocalciferol (Drisdol 50,000 Intl Units Cap) 1 cap PO Q7D [facility] Last Admin: 11/02/17 09:44 Dose: 1 cap Finasteride (Proscar) 5 mg PO DAILY [facility] Last Admin: 11/03/17 09:33 Dose: 5 mg Heparin Sodium (Porcine) (Heparin) 5,000 units SC Q8 [facility] PRN Reason: Protocol Last Admin: 11/03/17 14:17 Dose: 5,000 units Sodium Chloride (Sodium Chloride 0.9%) 1,000 mls @ 100 mls/hr IV .Q10H [facility] Last Admin: 11/03/17 11:22 Dose: 100 mls/hr Cefazolin Sodium (Ancef 1gm In Ns) 1 gm in 100 mls @ 100 mls/hr IVPB Q8 [facility] PRN Reason: Protocol Last Admin: 11/03/17 14:17 Dose: 100 mls/hr Dextrose (Dextrose 5% In Water 1000 Ml) 1,000 mls @ 0 mls/hr IV .Q0M PRN; Protocol; Per Protocol PRN Reason: Hypoglycemia Protocol Insulin Human Lispro (Humalog High) 0 units SC AC [facility] PRN Reason: Protocol Last Admin: 11/03/17 12:02 Dose: 7 units Lorazepam (Ativan) 0.5 mg IVP ONCE PRN; Protocol PRN Reason: Insomnia Last Admin: 10/31/17 23:28 Dose: 0.5 mg Losartan Potassium (Cozaar) 100 mg PO DAILY [facility] Last Admin: 11/03/17 09:33 Dose: 100 mg Ondansetron HCl (Zofran Inj) 4 mg IVP Q4H PRN PRN Reason: Nausea/Vomiting Pantoprazole Sodium (Protonix Ec Tab) 40 mg PO 0600 [facility] Last Admin: 11/03/17 05:56 Dose: 40 mg Polyethylene Glycol (Miralax) 17 gm PO BID [facility] Last Admin: 11/03/17 09:34 Dose: Not Given Propranolol HCl (Inderal) 20 mg PO BID [facility] Last Admin: 11/03/17 09:34 Dose: 20 mg Tamsulosin HCl (Flomax) 0.4 mg PO DAILY [facility] Last Admin: 11/03/17 09:34 Dose: 0.4 mg - Labs Labs: 11/03/17 06:00 11/03/17 06:00 - Constitutional Appears: Non-toxic, Chronically Ill - Neck Exam Neck Exam: absent: Meningismus - Respiratory Exam Respiratory Exam: Decreased Breath Sounds - Cardiovascular Exam Cardiovascular Exam: +S1, +S2 - GI/Abdominal Exam GI & Abdominal Exam: Soft. absent: Tenderness Assessment and Plan - Assessment and Plan (Free Text) Plan: Assessment UTI with cystitis in this patient with BPH, with possible right sided pyelonephritis, growing Group B Strep HTN DM GERD Plan on Cefazolin day 4 of antibiotics; repeat urine cx are negative - recommend 10- 14 days of antibiotics - can switch to PO Amoxicillin when ready for discharge
--- NOTE | 2017-11-05 02:24 | DS ---
Copied To: Claude Rg MD Attending MD: Claude Rg MD LOCATION: Patient is seen in room 577, bed 2. The patient is out of bed. Patient is alert, awake, responsive. Patient denies any dysuria, denies any constipation, denies any burning, denies any hematuria. REVIEW OF SYSTEMS: Patient's 13-system review was done, pertinent positive and negative dictated above. PHYSICAL EXAMINATION: VITAL SIGNS: T-max 98.4; pulse 56, 58, 60; blood pressure 150/82, 149/86; respiration 20, O2 sat 100%. HEENT: Head examination normocephalic, atraumatic. HEENT examination shows pink conjunctivae. Anicteric sclerae. No oropharyngeal lesion. NECK: No neck rigidity. CHEST: Symmetrical. LUNGS: Shows no rales, crackles or wheezing. CARDIOVASCULAR: S1, S2, regular rhythm. ABDOMEN: Soft. Positive bowel sounds. No hepatosplenomegaly noted. GENITALIA: Male. No costovertebral angle tenderness. EXTREMITIES: No pain, no calf numbness, no Homans sign. NEUROLOGIC: The patient is alert, awake, oriented x3. Cranial nerves II through XII intact. Gait examination is independent. VASCULAR: Palpable pulses. LABORATORY DATA: Fingerstick blood sugar 152, 241, 173, 130, 187, 298, 219, 244. Repeat urine cultures less than 1000. FINAL IMPRESSION, PLAN AND DISCHARGE DIAGNOSES: 1. Beta-hemolytic group B streptococcus urinary tract infection with cystitis. 2. History of prostatic hypertrophy. 3. Hypertension. 4. Microcytic anemia. 5. Uncontrolled insulin-requiring diabetes mellitus, with hyperglycemia and hemoglobin A1c of 9.4, and fructosamine of 294. 6. Elevated prostate-specific antigen of 3.5. 7. Hypovitaminosis D. 8. Proteinuria, microscopic hematuria, pyuria, funguria. 9. Severe cystitis with severe mural thickening and irregularity of the bladder wall with several bladder diverticulum. 10. Severe prostatomegaly 11. Constipation. 12. Hyperlipidemia. At present, the patient was cleared by Infectious Disease for discharge. DISCHARGE MEDICATIONS: Augmentin 875 one tablet twice a day for next 10 more days, Ecotrin 81 mg daily, Colace 100 mg three times a day, Drisdol 50,000 units weekly, Proscar 5 mg daily, Humulin 70/30 increased to 40 units with breakfast and dinner, Cozaar 100 mg daily, Inderal 20 mg twice a day, Crestor 10 mg daily, Flomax 0.4 mg daily. The patient is discharged home. Discharge followup with Dr. Rg within 1 week. The patient's discharge medications as per the new prescriptions and updated ambulatory orders. During the hospitalization, the patient was extensively explained about the details of her medical condition, diagnosis, test results, recommendation by all physicians involved in the care of the patient was discussed and explained to the patient at length on a daily basis, which he acknowledged understanding. Time spent in the discharge process 45 minutes. Dictated and electronically signed, not read. Claude Rg MD
== END 2017-11-04 18:34 | disposition home or self-care (01) | DRG 690 ==
LOC: ED 11:20 → ERH 14:35 → 5RSO 15:33
PROVIDERS: ADMIT Internal Medicine; ATTEND Internal Medicine
DX: N30.91 Cystitis, unspecified with hematuria (principal); N40.0 Benign prostatic hyperplasia without lower urinary tract symptoms; B95.1 Streptococcus, group B, as the cause of diseases classified elsewhere; E11.65 Type 2 diabetes mellitus with hyperglycemia; E55.9 Vitamin D deficiency, unspecified; N32.3 Diverticulum of bladder; R80.9 Proteinuria, unspecified; K59.00 Constipation, unspecified; D50.9 Iron deficiency anemia, unspecified; I11.9 Hypertensive heart disease without heart failure; K21.9 Gastro-esophageal reflux disease without esophagitis; E78.5 Hyperlipidemia, unspecified; K44.9 Diaphragmatic hernia without obstruction or gangrene; Z79.4 Long term (current) use of insulin

== ENCOUNTER 2018-03-06 15:15 | Emergency (ER) | payer MEDICARE ==
[2018-03-06 15:29] VITALS: BMI 30.1
[2018-03-06 15:32] VITALS: RESP 18; TEMP 98.2
[2018-03-06 17:02] LABS: BASO # 0.02 K/mm3 (0.0-2.0); BASO % 0.2 % (0.0-3.0); EOS % 0.3 % (1.5-5.0); GRAN # 8.23 (1.4-6.5); GRAN % 71.9 % (50.0-68.0); HEMOGLOBIN 11.1 g/dL (14.0-18.0); LYMPH % 17.4 % (22.0-35.0); MEAN CELL VOLUME 68.4 fl (80.0-105.0); MEAN CORPUSCULAR HEMOGLOBIN 22.7 pg (25.0-35.0); MEAN CORPUSCULAR HGB CONC 33.2 g/dl (31.0-37.0); MEAN PLATELET VOLUME 9.6 fl (7.0-11.0); MONO # 1.2 (0.1-0.6); MONO % 10.2 % (1.0-6.0); RBC 4.88 10^6/uL (3.5-6.1); RED CELL DISTRIBUTION WIDTH 14.3 % (11.5-14.5); WHITE BLOOD COUNT 11.4 10^3/uL (4.5-11.0)
[2018-03-06] MEDS: Sodium Chloride 0.9% 1,000 ML IV STA (17:06)
[2018-03-06 17:07] LABS: INR 1.21; PROTHROMBIN TIME 13.9 SECONDS (9.4-12.5)
--- NOTE | 2018-03-06 17:08 | ED PDOC ---
Arrival/HPI - General Chief Complaint: Headache Time Seen by Provider: 03/06/18 15:26 Historian: Patient - History of Present Illness Narrative History of Present Illness (Text): 03/06/18 16:00 77 year old male, whose past medical history includes benign prostatic hyperplasia, DM, and Hypertension, who was sent to the Emergency department by PMD complaining of a headache toward back of head since 03/02/18, worse past 3 days. Patient reports his PMD sent him to the Emergency department for a CT scan, and states he was given something similar to Ibuprofen. Patient notes significant relief of headache from medication prescribed by PMD. Patient notes associated flu-like symptoms. Patient denies any other complaints. PMD: Marvel Xiong Time/Duration: > week (Pt notes symptoms for past 4 days) Symptom Onset: Sudden Symptom Course: Unchanged Activities at Onset: Light Context: Home Past Medical History - Provider Review Nursing Documentation Reviewed: Yes - Travel History Have you recently traveled outside [place] w/in the past 3 mons?: No - Infectious Disease Hx of Infectious Diseases: None - Cardiac Hx Cardiac Disorders: Yes Hx Hypertension: Yes - Pulmonary Hx Respiratory Disorders: No - Neurological Hx Neurological Disorder: No - HEENT Hx HEENT Disorder: No - Renal Hx Renal Disorder: No - Endocrine/Metabolic Hx Diabetes Mellitus Type 2: Yes - Hematological/Oncological Hx Blood Disorders: No - Integumentary Hx Dermatological Disorder: No - Musculoskeletal/Rheumatological Hx Musculoskeletal Disorders: No - Gastrointestinal Hx Gastrointestinal Disorders: Yes Hx Gastroesophageal Reflux: Yes - Genitourinary/Gynecological Hx Genitourinary Disorders: Yes Hx Prostate Problems: Yes - Psychiatric Hx Psychophysiologic Disorder: No Hx Substance Use: No - Anesthesia Hx Anesthesia Reactions: No Hx Malignant Hyperthermia: No - Suicidal Assessment Feels Threatened In Home Enviroment: No Family/Social History - Physician Review Nursing Documentation Reviewed: Yes Family/Social History: No Known Family HX Smoking Status: Never Smoked Hx Alcohol Use: No Hx Substance Use: No Allergies/Home Meds Allergies/Adverse Reactions: Allergies No Known Allergies Allergy (Verified 10/31/17 15:42) Review of Systems - Physician Review All systems were reviewed & negative as marked: Yes - Review of Systems Respiratory: Cough (Pt notes coughing). absent: Normal Neurological: Headache (Pt notes headaches for past 3 days ). absent: Normal Physical Exam Vital Signs Reviewed: Yes Vital Signs Temp Pulse Resp BP Pulse Ox 03/06/18 15:28 98.2 F 80 18 158/79 H 96 Temperature: Afebrile Blood Pressure: Hypertensive Pulse: Regular Respiratory Rate: Normal Appearance: Positive for: Well-Appearing, Non-Toxic Pain Distress: Mild Mental Status: Positive for: Alert and Oriented X 3 - Systems Exam Head: Present: Atraumatic, Normocephalic Pupils: Present: PERRL Extroacular Muscles: Present: EOMI Conjunctiva: Present: Normal Mouth: Present: Moist Mucous Membranes Neck: Present: Normal Range of Motion Respiratory/Chest: Present: Clear to Auscultation, Good Air Exchange. No: Respiratory Distress, Accessory Muscle Use Cardiovascular: Present: Regular Rate and Rhythm, Normal S1, S2. No: Murmurs Abdomen: No: Tenderness, Distention, Peritoneal Signs Back: Present: Normal Inspection Upper Extremity: Present: Normal Inspection. No: Cyanosis, Edema Lower Extremity: Present: Normal Inspection. No: Edema Neurological: Present: GCS=15, CN II-XII Intact, Speech Normal, Motor Func Grossly Intact, Normal Sensory Function, Memory Normal Skin: Present: Warm, Dry, Normal Color. No: Rashes Psychiatric: Present: Alert, Oriented x 3, Normal Insight, Normal Concentration Medical Decision Making ED Course and Treatment: 03/06/18 16:00 Impression: 77 year old male who was sent to the Emergency department by PMD for CT scan of head with complaint of a headache toward back of head since 03/02/18, worse past 3 days. Differential Diagnosis included but are not limited to: --Tension Headache --Sinusitis --SAH Plan: -- CT of head w/o contrast -- Labs -- Reglan -- IV fluids -- Reassess and disposition Prior Visits: Notes and results from previous visits were reviewed. Patient was last seen in the emergency department on 10/31/17 for suprapubic abdominal pain since last . Pt was hospitalized in stable condition with diagnosis of urinary tract infection and cystitis Progress Notes: 03/09/18 18:30 Labs reviewed with slight leukocytosis of [address] reviewed revealing pansinusitis. Patient updated on findings and advised to follow up with his PCP and to take his antibiotics as prescribed. He is stable for discharge. - Lab Interpretations Lab Results: 03/06/18 16:41 Lab Results 03/06/18 16:41: WBC 11.4 H, RBC 4.88, Hgb 11.1 L, Hct 33.4 L, MCV 68.4 L, MCH 22.7 L, MCHC 33.2, RDW 14.3, Plt Count 405, MPV 9.6, Gran % 71.9 H, Lymph % (Auto) 17.4 L, [place] % (Auto) 10.2 H, Eos % (Auto) 0.3 L, Baso % (Auto) 0.2, Gran # 8.23 H, Lymph # (Auto) 2.0, [place] # (Auto) 1.2 H, Eos # (Auto) 0.0, Baso # (Auto) 0.02 - RAD Interpretation Narrative RAD Interpretations (Text): CT of head reviewed by radiologist, shows: Dictated by: Delfino Mcintyre MD Dictated Date/Time: 03/06/18 17:47 Impression: No acute intracranial abnormalities. No significant findings to account for the clinical presentation. Pansinusitis. Acute and chronic sinus disease noted. Radiology Orders: 03/06/18 16:08 HEAD W/O CONTRAST [CT] [employer] Service Director: Radiologist - Medication Orders Current Medication Orders: Sodium Chloride (Sodium Chloride 0.9%) 1,000 mls @ 999 mls/hr IV .Q1H1M [facility] Stop: 03/06/18 17:37 Discontinued Medications Metoclopramide HCl (Reglan) 10 mg IVP STAT STA Stop: 03/06/18 16:09 - Scribe Statement The provider has reviewed the documentation as recorded by the Ldibe Chasity Pereyra All medical record entries made by the Ldibjose were at my direction and personally dictated by me. I have reviewed the chart and agree that the record accurately reflects my personal performance of the history, physical exam, medical decision making, and the department course for this patient. I have also personally directed, reviewed, and agree with the discharge instructions and disposition. Disposition/Present on Arrival - Present on Arrival Any Indicators Present on Arrival: Yes History of DVT/PE: No History of Uncontrolled Diabetes: Yes Urinary Catheter: No History of Decub. Ulcer: No History Surgical Site Infection Following: None - Disposition Have Diagnosis and Disposition been Completed?: Yes Diagnosis: Acute sinusitis, Hyperglycemia Disposition: HOME/ ROUTINE Disposition Time: 18:30 Patient Plan: Discharge Condition: IMPROVED Discharge Instructions (ExitCare): Sinusitis, Adult (DC), Sinus Headache (DC) Print Language: NAURUAN Additional Instructions: All medical record entries made by the Scribe were at my direction and person ally dictated by me. I have reviewed the chart and agree that the record accurately reflects my personal performance of the history, physical exam, medical decision making, and the department course for this patient. I have also personally directed, reviewed, and agree with the discharge instructions and disposition. Prescriptions: Amoxicillin/Potassium Clav [Amox-Clav 875-125 mg Tablet] 1 each PO BID 10 Days #20 tablet Referrals: Marvel Jackson MD [Primary Care Provider] - Follow up with primary Forms: [facility] (Serbian)
[2018-03-06 17:22] LABS: ALB/GLOB RATIO 0.9 (1.1-1.8); ALBUMIN 3.6 g/dL (3.0-4.8); ALT/SGPT 55 U/L (7-56); AST/SGOT 50 U/L (17-59); BLOOD UREA NITROGEN 16 mg/dL (7-21); CALCIUM 9.9 mg/dL (8.4-10.5); GFR NON-AFRICAN AMERICAN > 60
--- NOTE | 2018-03-06 17:51 | CT ---
Date of service: 03/06/2018 PROCEDURE: CT HEAD WITHOUT CONTRAST. HISTORY: HEADACHE COMPARISON: None available. TECHNIQUE: Axial computed tomography images were obtained through the head/brain without intravenous contrast. Supplemental Coronal and Sagittal projections created and reviewed. Radiation dose: Total exam DLP = 1354.78 mGy-cm. This CT exam was performed using one or more of the following dose reduction techniques: Automated exposure control, adjustment of the mA and/or kV according to patient size, and/or use of iterative reconstruction technique. FINDINGS: HEMORRHAGE: No intracranial hemorrhage. BRAIN: No mass effect or edema. No atrophy or chronic microvascular ischemic changes. VENTRICLES: Unremarkable. No hydrocephalus. CALVARIUM: Unremarkable. PARANASAL SINUSES: Air-fluid levels in both maxillary sinuses tests to a component of acute sinusitis. Air-fluid levels also identified in [place] noise sinuses. Right frontal ethmoid air cell disease as well. Chronic appearing findings identified in ethmoid air cells. MASTOID AIR CELLS: Unremarkable as visualized. No inflammatory changes. OTHER FINDINGS: None. IMPRESSION: No acute intracranial abnormalities. No significant findings to account for the clinical presentation. Pansinusitis. Acute and chronic sinus disease noted.
[2018-03-06] MEDS: Insulin Regular 1 UNITS/0.01 ML ML SC STA (18:46)
[2018-03-06 19:53] VITALS: BP 150/70; PULSE 90; O2SAT 98
== END 2018-03-06 19:53 | disposition home or self-care (01) ==
LOC: ED 15:15
DX: J01.90 Acute sinusitis, unspecified (principal); E11.65 Type 2 diabetes mellitus with hyperglycemia; I10 Essential (primary) hypertension
CPT/HCPCS: 70450; 80053; 85025; 85610; 85730; 96361; 96374; 99285; J2765; J7030

== ENCOUNTER 2018-06-21 09:29 | Emergency (ER) | payer MEDICARE ==
[2018-06-21 09:30] VITALS: BMI 30.1
[2018-06-21 10:21] VITALS: RESP 18; TEMP 97.9
[2018-06-21] MEDS ORDERED: Sodium Chloride 0.9% 1,000 ML IV SCH (10:45)
--- NOTE | 2018-06-21 10:50 | ED PDOC ---
Arrival/HPI - General Chief Complaint: Abdominal Pain Time Seen by Provider: 06/21/18 10:19 Historian: Patient - History of Present Illness Narrative History of Present Illness (Text): 06/21/18 10:46 78 year old M with pmh benign prostatic hyperplasia, chest keloid, DM, HLD and HTN presents with chief complaint of lower abdominal pain and dysuria x3days. Patient reports decreased urine output since pain began. Patient also complains of intermittent keloid pain on left chest x2yrs. No shortness of breath or chest pain. Pt notes whenever he touches the keloid he has pain. No dark or bloody stool. He denies any genital or testicular pain. No rash. Patient denies any fevers, chills, headache, dizziness, dyspnea on exertion, cough, diaphoresis, nausea, vomiting, diarrhea, back pain, neck pain, or any other complaint. Time/Duration: < week Symptom Onset: Gradual Symptom Course: Unchanged Activities at Onset: Light Context: Home Past Medical History - Provider Review Nursing Documentation Reviewed: Yes - Infectious Disease Hx of Infectious Diseases: None - Cardiac Hx Cardiac Disorders: Yes Hx Hypertension: Yes - Pulmonary Hx Respiratory Disorders: No - Neurological Hx Neurological Disorder: No - HEENT Hx HEENT Disorder: No - Renal Hx Renal Disorder: No - Endocrine/Metabolic Hx Diabetes Mellitus Type 2: Yes - Hematological/Oncological Hx Blood Disorders: No - Integumentary Hx Dermatological Disorder: No - Musculoskeletal/Rheumatological Hx Musculoskeletal Disorders: No - Gastrointestinal Hx Gastrointestinal Disorders: Yes Hx Gastroesophageal Reflux: Yes - Genitourinary/Gynecological Hx Genitourinary Disorders: Yes Hx Prostate Problems: Yes - Psychiatric Hx Psychophysiologic Disorder: No Hx Substance Use: No - Anesthesia Hx Anesthesia: Yes Hx Anesthesia Reactions: No Hx Malignant Hyperthermia: No - Suicidal Assessment Feels Threatened In Home Enviroment: No Family/Social History - Physician Review Nursing Documentation Reviewed: Yes Family/Social History: Unknown Family HX Smoking Status: Never Smoked Hx Alcohol Use: No Hx Substance Use: No Allergies/Home Meds Allergies/Adverse Reactions: Allergies No Known Allergies Allergy (Verified 10/31/17 15:42) Review of Systems - Physician Review All systems were reviewed & negative as marked: Yes - Review of Systems Constitutional: absent: Fevers ENT: absent: Hearing Changes, TMJ Pain, Sore Throat, Rhinorrhea, Epistaxis Respiratory: absent: SOB, Cough, Wheezing Cardiovascular: absent: Chest Pain, Palpitations, Syncope Gastrointestinal: Abdominal Pain (lower). absent: Constipation, Diarrhea, Nausea, Vomiting, Hematochezia, Food Intolerance Genitourinary Male: Dysuria, Urinary Output Changes (decreased) Musculoskeletal: absent: Arthralgias, Back Pain, Myalgias Neurological: absent: Headache, Dizziness Physical Exam Vital Signs Reviewed: Yes Vital Signs Temp Pulse Resp BP Pulse Ox 06/21/18 09:30 97.9 F 68 18 140/80 100 Temperature: Afebrile Blood Pressure: Normal Pulse: Regular Respiratory Rate: Normal Appearance: Positive for: Well-Appearing, Non-Toxic, Comfortable Pain Distress: Mild Mental Status: Positive for: Alert and Oriented X 3 - Systems Exam Head: Present: Atraumatic, Normocephalic Pupils: Present: PERRL Extroacular Muscles: Present: EOMI Conjunctiva: Present: Normal Mouth: Present: Moist Mucous Membranes Neck: Present: Normal Range of Motion. No: Meningeal Signs, MIDLINE TENDERNESS Respiratory/Chest: Present: Clear to Auscultation, Good Air Exchange. No: Respiratory Distress, Accessory Muscle Use Cardiovascular: Present: Regular Rate and Rhythm, Normal S1, S2. No: Murmurs Abdomen: Present: Tenderness (suprapubic), Normal Bowel Sounds. No: Distention, Peritoneal Signs, Rebound, Guarding, McBurney's Point Tender, Rovsing's Sign Present, Hernias Back: Present: Normal Inspection. No: CVA Tenderness, Midline Tenderness Upper Extremity: Present: Normal Inspection. No: Cyanosis, Edema Lower Extremity: Present: Normal Inspection. No: Edema Neurological: Present: GCS=15, CN II-XII Intact, Speech Normal Skin: Present: Warm, Dry, Normal Color, Other (Keloid tenderness to left chest. No erthematous or crepitus). No: Rashes, Erythematous Psychiatric: Present: Alert, Oriented x 3, Normal Insight, Normal Concentration Medical Decision Making ED Course and Treatment: 06/21/18 10:50 Impression: 78 year old M presents with chief complaint of lower abdominal pain and dysuria x3days. Likely UTI vs prostatitis. Likely keloid chest pain as has had chronic chest pain to his keloid area x2 years. No fall or trauma. No shortness of breath or back pain. No abscess or induration / crepitus or erythema noted to L keloid, but keloid is TTP. No pleuritic CP or leg swelling. No dark or bloody stool. Plan: -- CT ABd & Pelvis IV contrast -- Labs -- EKG -- Tylenol -- UA -- Reassess and disposition Prior Visits: Notes and results from previous visits were reviewed. Progress Notes: 06/21/18 13:11 EKG shows sinus bradycardia at 57 BPM, No STEMI. Interpreted by me. 06/21/18 13:29 labs largely unremarkable pending UA and CT 06/21/18 13:50 CT Abdomen and Pelvis with contrast Enlarged prostate. Bladder diverticula. No acute intra-abdominal findings 06/21/18 14:01 ct largely unremarkable pending UA 06/21/18 14:36 No CVAT on exam WBC w/ TNTC: Likely complicated UTI pt denies any hx of STD or recent sexual activity. no sex in 10+ years. No leukocytosis, will rx abx and d/c home w/ return indications and f/u. Pt agreeable to plan - Scribe Statement The provider has reviewed the documentation as recorded by the Ldibjose Bhakta All medical record entries made by the Scribe were at my direction and personally dictated by me. I have reviewed the chart and agree that the record accurately reflects my personal performance of the history, physical exam, medical decision making, and the department course for this patient. I have also personally directed, reviewed, and agree with the discharge instructions and disposition. Disposition/Present on Arrival - Present on Arrival Any Indicators Present on Arrival: No History of DVT/PE: No History of Uncontrolled Diabetes: Yes Urinary Catheter: No History of Decub. Ulcer: No History Surgical Site Infection Following: None - Disposition Have Diagnosis and Disposition been Completed?: Yes Diagnosis: UTI (urinary tract infection) Disposition: HOME/ ROUTINE Disposition Time: 14:40 Condition: STABLE Discharge Instructions (ExitCare): Urinary Tract Infection, Adult (DC) Additional Instructions: JASON REINOSO, thank you for letting us take care of you today. Your provider was Jw Coronado and you were treated for lower abdominal pain / bladder infection. The emergency medical care you received today was directed at your acute symptoms. If you were prescribed any medication, please fill it and take as directed. It may take several days for your symptoms to resolve. Return to the Emergency Department if your symptoms worsen, do not improve, or if you have any other problems. Please contact your doctor or call one of the physicians/clinics you have been referred to that are listed on the Patient Visit Information form that is included in your discharge packet. Bring any paperwork you were given at discharge with you along with any medications you are taking to your follow up v isit. Our treatment cannot replace ongoing medical care by a primary care provider outside of the emergency department. Thank you for allowing the [facility] team to be part of your care today. If you had an X-Ray or CT scan: A Radiologist will review the ED reading if any change in treatment is needed we will contact you. If you had a blood, urine, or wound culture: It will take several days for the results, if any change in treatment is needed we will contact you. If you had an STI test: It will take 48 hours for the results. Please call after 1 week if you have not heard back. Prescriptions: Ciprofloxacin [Cipro] 500 mg PO BID 14 Days #28 tab Referrals: Marvel Jackson MD [Primary Care Provider] - Follow up with primary Parish Zamorano MD [Staff Provider] - Follow up with primary [facility] [Outside] - Follow up with primary [facility] [Outside] - Follow up with primary [facility] at [facility] [Outside] - Follow up with primary Forms: [employer] ([place])
[2018-06-21 11:37] LABS: BASO # 0.02 K/mm3 (0.0-2.0); BASO % 0.2 % (0.0-3.0); EOS # 0.1 (0.0-0.7); EOS % 1.3 % (1.5-5.0); HEMOGLOBIN 11.9 g/dL (14.0-18.0); LYMPH # 2.2 (1.2-3.4); LYMPH % 25.7 % (22.0-35.0); MEAN CELL VOLUME 71.2 fl (80.0-105.0); MEAN CORPUSCULAR HEMOGLOBIN 22.9 pg (25.0-35.0); MEAN CORPUSCULAR HGB CONC 32.2 g/dl (31.0-37.0); MEAN PLATELET VOLUME 9.6 fl (7.0-11.0); MONO # 0.9 (0.1-0.6); MONO % 10.2 % (1.0-6.0); RBC 5.2 10^6/uL (3.5-6.1); RED CELL DISTRIBUTION WIDTH 15.4 % (11.5-14.5); WHITE BLOOD COUNT 8.4 10^3/uL (4.5-11.0)
[2018-06-21 12:20] LABS: ALBUMIN 3.6 g/dL (3.0-4.8); ALT/SGPT 35 U/L (7-56); AST/SGOT 49 U/L (17-59); BLOOD UREA NITROGEN 18 mg/dL (7-21); CALCIUM 9.6 mg/dL (8.4-10.5); GFR NON-AFRICAN AMERICAN > 60; LIPASE 61 U/L (23-300)
[2018-06-21 12:32] LABS: TROPONIN I < 0.01 ng/mL
[2018-06-21] MEDS ORDERED: Iohexol 350 MG/100 ML VIAL ONE (12:32)
[2018-06-21 13:39] VITALS: BP 180/80; PULSE 54; O2SAT 100
--- NOTE | 2018-06-21 13:41 | CT ---
Date of service: 06/21/2018 PROCEDURE: CT Abdomen and Pelvis with contrast HISTORY: abd pain COMPARISON: None. TECHNIQUE: Contrast dose: 100 cc of Omni 350 Radiation dose: Total exam DLP = 888.34 mGy-cm. This CT exam was performed using one or more of the following dose reduction techniques: Automated exposure control, adjustment of the mA and/or kV according to patient size, and/or use of iterative reconstruction technique. FINDINGS: LOWER THORAX: Unremarkable. LIVER: Unremarkable. No gross lesion or ductal dilatation. GALLBLADDER AND BILE DUCTS: Unremarkable. PANCREAS: Unremarkable. No gross lesion or ductal dilatation. SPLEEN: Unremarkable. ADRENALS: Unremarkable. No mass. KIDNEYS AND URETERS: Unremarkable. No hydronephrosis. No solid mass. VASCULATURE: Unremarkable. No aortic aneurysm. Aortic calcification BOWEL: Unremarkable. No obstruction. No gross mural thickening. APPENDIX: Normal appendix. PERITONEUM: Unremarkable. No free fluid. No free air. LYMPH NODES: Unremarkable. No enlarged lymph nodes. BLADDER: Small diverticulum are seen along the superior surface of the bladder measuring 10 and 15 mm in diameter. There is some enhancement of the wall of these diverticula. REPRODUCTIVE: The prostate measures 56 x 68 mm transversely and 70 mm in height. BONES: No acute fracture. OTHER FINDINGS: None. IMPRESSION: Enlarged prostate. Bladder diverticula. No acute intra-abdominal findings
[2018-06-21 14:12] LABS: PH,URINE 7.5 (4.7-8.0); URINE BILIRUBIN NEGATIVE (NEGATIVE); URINE BLOOD SMALL (NEGATIVE); URINE GLUCOSE (UA) NEGATIVE (NEGATIVE); URINE LEUKOCYTE ESTERASE SMALL Leu/uL (NEGATIVE); URINE PROTEIN 100 mg/dL (<30 mg/dL); URINE UROBILINOGEN 0.2 E.U./dL (<1 E.U./dL)
[2018-06-21 14:15] LABS: URINE APPEARANCE SLIGHT-CLOUDY (CLEAR); URINE COLOR YELLOW (YELLOW)
[2018-06-21 14:22] LABS: URINE BACTERIA LARGE /hpf; URINE EPITHELIAL CELLS 0 - 2 /hpf (0-5)
[2018-06-21 14:23] LABS: URINE AMORPHOUS SEDIMENT SMALL /hpf; URINE COARSE GRANULAR CAST TRACE /hpf
[2018-06-21 14:24] LABS: URINE RBC TNTC /hpf (0-2); URINE WBC TNTC /hpf (0-6)
--- NOTE | 2018-06-21 17:06 | CARD ---
APPROVED REPORT Date of service: 06/21/2018 EKG Measurement Heart [id number] [id number] <Conclusion> Sinus bradycardia with sinus arrhythmia Minimal voltage criteria for LVH, may be normal variant Borderline ECG
== END 2018-06-21 15:11 | disposition home or self-care (01) ==
LOC: ED 09:29
DX: N39.0 Urinary tract infection, site not specified (principal); E11.9 Type 2 diabetes mellitus without complications; I10 Essential (primary) hypertension; E78.5 Hyperlipidemia, unspecified; N40.0 Benign prostatic hyperplasia without lower urinary tract symptoms
CPT/HCPCS: 74177; 80053; 81001; 83690; 84484; 85025; 87086; 93005; 99283; J7030; Q9967

== ENCOUNTER 2018-08-13 12:46 | Emergency (ER) | payer MEDICARE ==
[2018-08-13 12:47] VITALS: BMI 29.7
[2018-08-13 13:05] VITALS: BP 180/77; PULSE 92; RESP 18; TEMP 97.5; O2SAT 100
--- NOTE | 2018-08-13 13:12 | ED PDOC ---
Arrival/HPI - General Chief Complaint: Male Genitourinary Time Seen by Provider: 08/13/18 12:48 Historian: Patient - History of Present Illness Narrative History of Present Illness (Text): 08/13/18 13:11 78 year old M with pmh of benign prostatic hyperplasia presents with cc of garcia pain since today. Garcia cath was placed on 08/09/18. Patient also complains of hematuria. Patient is requesting garcia to be removed today. He have an appointment with Dr. Zamorano to have garcia removed tomorrow. Patient denies any fevers, chills, headache, dizziness, chest pain, shortness of breath, or any other complaints. Urologist: Dr. Zamorano Symptom Onset: Sudden Symptom Course: Unchanged Activities at Onset: Light Past Medical History - Provider Review Nursing Documentation Reviewed: Yes - Infectious Disease Hx of Infectious Diseases: None - Cardiac Hx Pacemaker: No - Pulmonary Hx Respiratory Disorders: No - Neurological Hx Neurological Disorder: No - HEENT Hx HEENT Disorder: No - Renal Hx Renal Disorder: No - Endocrine/Metabolic Hx Diabetes Mellitus Type 2: Yes - Hematological/Oncological Hx Blood Transfusions: No Hx Blood Transfusion Reaction: No - Integumentary Hx Dermatological Disorder: No - Musculoskeletal/Rheumatological Hx Musculoskeletal Disorders: No - Gastrointestinal Hx Gastroesophageal Reflux: Yes - Genitourinary/Gynecological Hx Prostate Problems: Yes (ENLARGED/RETENTION) - Psychiatric Hx Emotional Abuse: No Hx Physical Abuse: No Hx Substance Use: No - Anesthesia Hx Anesthesia Reactions: No Hx Malignant Hyperthermia: No - Suicidal Assessment Feels Threatened In Home Enviroment: No Family/Social History - Physician Review Nursing Documentation Reviewed: Yes Family/Social History: Unknown Family HX Smoking Status: Never Smoked Hx Alcohol Use: No Hx Substance Use: No Allergies/Home Meds Allergies/Adverse Reactions: Allergies No Known Allergies Allergy (Verified 08/13/18 12:54) Review of Systems - Physician Review All systems were reviewed & negative as marked: Yes - Review of Systems Constitutional: absent: Fevers ENT: absent: Rhinorrhea, Epistaxis Respiratory: absent: SOB, Cough Cardiovascular: absent: Chest Pain, Palpitations, PARK Gastrointestinal: absent: Diarrhea, Nausea, Vomiting Skin: absent: Rash, Pruritis, Ulcer Neurological: absent: Headache, Dizziness Physical Exam Vital Signs Reviewed: Yes Vital Signs Temp Pulse Resp BP Pulse Ox 08/13/18 12:59 97.5 F L 92 H 18 180/77 H 100 Temperature: Afebrile Blood Pressure: Hypertensive Pulse: Regular Respiratory Rate: Normal Appearance: Positive for: Well-Appearing, Non-Toxic, Comfortable Pain Distress: Mild Mental Status: Positive for: Alert and Oriented X 3 - Systems Exam Head: Present: Atraumatic, Normocephalic Pupils: Present: PERRL Extroacular Muscles: Present: EOMI Conjunctiva: Present: Normal Mouth: Present: Moist Mucous Membranes Neck: Present: Normal Range of Motion Respiratory/Chest: Present: Clear to Auscultation, Good Air Exchange. No: Respiratory Distress, Accessory Muscle Use Cardiovascular: Present: Regular Rate and Rhythm, Normal S1, S2. No: Murmurs Abdomen: No: Tenderness, Distention, Peritoneal Signs Back: Present: Normal Inspection Upper Extremity: Present: Normal Inspection. No: Cyanosis, Edema Lower Extremity: Present: Normal Inspection. No: Edema Neurological: Present: GCS=15, CN II-XII Intact, Speech Normal Skin: Present: Warm, Dry, Normal Color. No: Rashes Psychiatric: Present: Alert, Oriented x 3, Normal Insight, Normal Concentration Medical Decision Making ED Course and Treatment: 08/13/18 13:11 Impression: 78 year old M presents with cc of garcia pain since today Plan: -- Tylenol -- Reassess and disposition Prior Visits: Notes and results from previous visits were reviewed. Progress Notes: 13:[address] Zamorano who does not want garcia removed in ER. Will see patient tomorrow at 8:30 in the morning to remove garcia as ptneeded or for garcia previoulsy. already on anbtioics. will treat pain advise emilpt fu. 08/13/18 13:28 - Scribe Statement The provider has reviewed the documentation as recorded by the Juvenal Bhakta All medical record entries made by the Scribe were at my direction and personally dictated by me. I have reviewed the chart and agree that the record accurately reflects my personal performance of the history, physical exam, medical decision making, and the department course for this patient. I have also personally directed, reviewed, and agree with the discharge instructions and disposition. Disposition/Present on Arrival - Present on Arrival Any Indicators Present on Arrival: No History of DVT/PE: No History of Uncontrolled Diabetes: No Urinary Catheter: No (DASHAWN UNABLE TO INSERT) History of Decub. Ulcer: No History Surgical Site Infection Following: None - Disposition Have Diagnosis and Disposition been Completed?: Yes Diagnosis: Garcia catheter problem Disposition: HOME/ ROUTINE Disposition Time: 13:29 Patient Problems: Current Active Problems Problem Status Onset Garcia catheter problem Acute Condition: STABLE Discharge Instructions (ExitCare): How to Care for Your Garcia Catheter, Male Additional Instructions: return to er with worsening. please call dr zamorano. he is expecting to hear from you. please see him in his office 830 am tommorow. Prescriptions: Naproxen 500 mg PO BID PRN #14 tab PRN Reason: Pain, Mild (1-3) Referrals: Parish Zamorano MD [Staff Provider] - Follow up with primary Forms: [employer] ([place])
== END 2018-08-13 13:44 | disposition home or self-care (01) ==
LOC: ED 12:46
DX: T83.84XA Pain due to genitourinary prosthetic devices, implants and grafts, initial encounter (principal); E11.9 Type 2 diabetes mellitus without complications; N40.0 Benign prostatic hyperplasia without lower urinary tract symptoms